=== PATIENT | male | born 1970 | race Caucasian/White ===

== ENCOUNTER 2024-08-09 17:26 | Inpatient (IN) | payer MEDICARE, SELFPAY ==
[2024-08-09] VITALS (17 sets, daily range): BP systolic 101–154; BP diastolic 63–109; PULSE 75–91; RESP 16–114; TEMP 36.6–36.7; O2SAT 91–98
--- NOTE | 2024-08-09 17:32 | CTR_ITS ---
PROCEDURE INFORMATION: Exam: CT Head Without Contrast Exam date and time: 08/09/2024 5:39 PM Age: 54 years old Clinical indication: Stroke-like symptoms; Right upper extremity numbness/paresthesia; Additional info: Symptoms of acute stroke TECHNIQUE: Imaging protocol: Computed tomography of the head without contrast. Radiation optimization: All CT scans at this facility use at least one of these dose optimization techniques: automated exposure control; mA and/or kV adjustment per patient size (includes targeted exams where dose is matched to clinical indication); or iterative reconstruction. Other technique: STROKE PROTOCOL was implemented. COMPARISON: CT angio headneck* [id number] 08/09/2024 5:39 PM RADIATION DOSE METRICS: Total DLP (mGy-cm): 1204.1 FINDINGS: Brain: No intracranial hemorrhage. No evidence of acute territorial infarct or cerebral edema. No mass effect or midline shift. Cerebral ventricles: No hydrocephalus. Paranasal sinuses: Visualized paranasal sinuses are clear. Mastoid air cells: The mastoid air cells are clear. Bones: The calvarium is intact. Soft tissues: Soft tissues are unremarkable as visualized. Soft tissues are unremarkable as visualized. CT/CT head thrombolytic [id number] IMPRESSION: No acute intracranial findings. ASSESSMENT: ASPECTS ([place] Stroke Program Early CT Score) is 10.
--- NOTE | 2024-08-09 17:32 | ECG_ITS ---
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 Measurements Intervals [place] Rate: 85 P: 15 WV: 160 QRS: 2 QRSD: 93 T: 118 QT: 385 QTc: 458 Interpretive Statements SINUS RHYTHM ABNORMAL QRS-T ANGLE [QRS-T AXIS DIFFERENCE > 60] No previous ECG available for comparison Electronically Signed On 08-09-2024 18:50:34 CDT by Keyanna Webb M.D. [email or web address]
[2024-08-09 17:34] LABS: Glucose Point of Care 121 mg/dL (70-110)
--- NOTE | 2024-08-09 17:34 | W.ED.NEUROSD ---
HPI - Neuro Symptoms/Deficit General: Chief Complaint: Neuro Symptoms/Deficit Stated Complaint: Stroke like symptoms Time Seen by Provider: 08/09/24 17:32 History of Present Illness: 54-year-old male presents with numbness down his whole right side. He feels like the right side is a little bit weaker than the left but still has strength. Patient also feels like his speech is a little off. Patient also reports that when he was walking he felt like he was leaning head off to the right. Patient's symptoms started around 4 PM Related Data Allergies Allergy/AdvReac Type Severity Reaction Status Date / Time No Known Allergies Allergy Verified 08/09/24 17:33 Review of Systems Const: Denies: fever(s) or chills Neuro: Reports: numbness in extremities, weakness in extremities and difficulty walking Psych: Denies: anxiety or depression [facility] ED PFSH: Medical History (Updated 08/09/24 @ 19:46 by John Fairbanks MD) Chronic back pain Coronary artery disease Congestive heart failure Hypertension Surgical History (Updated 08/09/24 @ 19:38 by John Fairbanks MD) History of hand surgery Family History (Updated 08/09/24 @ 19:38 by John Fairbanks MD) Father Heart disease Social History (Updated 08/09/24 @ 19:38 by John Fairbanks MD) Smoking and tobacco/nicotine status: never used tobacco/nicotine Alcohol intake: never Substance/Drug Use: never Physical Exam Const: COMMON NORMALS: no acute distress, patient oriented x3 and alert Eye: GENERAL EYE: appearance normal, both eyes and all related structures VISUAL ACUITY: Yes acuity normal Resp: COMMON NORMALS: normal respiratory effort and clear to auscultation bilaterally AUSCULTATION: clear to auscultation bilaterally Cardio: COMMON NORMALS: regular rate and regular rhythm RATE: regular rate RHYTHM: regular rhythm GI: COMMON NORMALS: Soft to palpation and non-tender PALPATION: Yes Soft to palpation Neuro: COMMON NORMALS: patient oriented x3 and moves all extremities SENSORIUM/ORIENTATION: Yes alert SPEECH: abnormal speech Details: slurred (mild ) GAIT: Yes Other gait observations present (mild off balance to right ) SENSORY EXAM: Yes extremities (mild decreased sensation to right ) Psych: COMMON NORMALS: mental status grossly normal, Normal thought process present, cooperative and normal affect THOUGHT PROCESS: Normal thought process present Skin: COMMON NORMALS: no rashes or lesions noted GENERAL SKIN EXAM: no rashes or lesions noted Course Vital Signs: Vital signs: Vital Signs Temperature 97.9 F 08/09/24 17:28 Pulse Rate 88 08/09/24 19:33 Respiratory Rate 21 H 08/09/24 19:33 Blood Pressure 154/92 08/09/24 19:33 Pulse Oximetry 91 08/09/24 19:30 Oxygen Delivery Me thod Room Air 08/09/24 19:30 MDM - Neuro Symptoms/Deficit Medical Decision Making Patient diagnostics are reviewed interpreted by me. Patient's labs showed no significant acute findings. Patient did have symptoms concerning for stroke. Stroke alert was called. Patient had a negative CT head and negative CTA head neck. Patient case was discussed with neurologist Dr. Rose who also evaluated patient via [place] neurostroke. Following evaluation they felt that he would benefit from TNKase. Patient NIH was approximately 4 however due to to the symptoms and presentation he felt he was a good candidate. Patient was provided with TNKase. Patient will be admitted to the ICU unit to Dr. Fairbanks hospitalist for further inpatient evaluation and monitoring. Patient was stable upon admission. Lab Data 08/09/24 17:32 08/09/24 17:[address] 08/09/24 17:32 IMPRESSION: No acute intracranial findings. ASSESSMENT: ASPECTS ([place] Stroke Program Early CT Score) is 10. ADDENDUM: 08/09/24 1813 COMMENT: THIS REPORT CONTAINS FINDINGS THAT MAY BE CRITICAL TO PATIENT CARE. The exam findings were verbally communicated by me to RITO KIM via telephone conference at 6:12 PM CDT on 08/09/2024. The findings were acknowledged and understood. Head/Neck CTA 08/09/24 17:39 IMPRESSION: 1. No large vessel occlusion or severe stenosis. 2. Moderate stenosis of the right vertebral artery. 3. Mild stenosis of bilateral intracranial carotid arteries, [id number]-yhzyewj-yhzv-left. IMPRESSION: 1. No large vessel occlusion or flow-limiting arterial stenosis. 2. Nonspecific bilateral level 2A cervical lymphadenopathy, npokm-ygfdrta-qyzf-left. REFERENCES: NASCET CRITERIA. The degree of stenosis in the cervical segment of the internal carotid artery is based on NASCET criteria. Normal is no stenosis. Mild is less than 50% stenosis. Moderate is 50-69% stenosis. Severe is 70% to 99% stenosis. Total occlusion is no detectable patent lumen. Laboratory Results WBC 13.94 10^3/uL (3.29-11.43) H 08/09/24 17:32 RBC 6.50 10^6/uL (3.85-5.65) H 08/09/24 17:32 Hgb 17.10 g/dL (11.27-16.99) H 08/09/24 17:32 Hct 53.6 % (37-53) H 08/09/24 17:32 MCV 82.5 fl (82-101) 08/09/24 17:32 MCH 26.3 pg (27-33) L 08/09/24 17:32 MCHC 31.9 g/dL (30-55) 08/09/24 17:32 RDW 14.4 % (12.1-15.1) 08/09/24 17:32 Plt Count 311 10^3/cmm (157-399) 08/09/24 17:32 MPV 9.4 fL (7.4-10.4) 08/09/24 17:32 Neut % (Auto) 61.8 % 08/09/24 17:32 Lymph % (Auto) 24.8 % 08/09/24 17:32 Christian % (Auto) 9.5 % 08/09/24 17:32 Eos % (Auto) 1.4 % 08/09/24 17:32 Baso % (Auto) 0.9 % 08/09/24 17:32 Neut # (Auto) 8.62 10^3/uL (1.8-7.7) H 08/09/24 17:32 Lymph # (Auto) 3.5 10^3/uL (0.8-4.8) 08/09/24 17:32 Christian # (Auto) 1.3 10^3/uL (0.2-0.9) H 08/09/24 17:32 Eos # (Auto) 0.2 10^3/uL (0.0-0.8) 08/09/24 17:32 Baso # (Auto) 0.1 10^3/uL (0.0-0.1) 08/09/24 17:32 Nucleated RBC % (auto) 0 % 08/09/24 17:32 Nucleated RBCs # 0.0 /100WBC 08/09/24 17:32 PT 13.10 SECONDS (12.1-14.9) 08/09/24 17:32 INR 0.93 (0.8-1.2) 08/09/24 17:32 APTT 29.9 SECONDS (23.9-36.7) 08/09/24 17:32 Sodium 140 mmol/L (136-145) 08/09/24 17:32 Potassium 4.9 mmol/L (3.5-5.1) 08/09/24 17:32 Chloride 104 mmol/L (98-107) 08/09/24 17:32 Carbon Dioxide 27 mmol/L (22-29) 08/09/24 17:32 Anion Gap 13.9 (5-19) 08/09/24 17:32 BUN 16 mg/dL (6-20) 08/09/24 17:32 Creatinine 0.9 mg/dL (0.7-1.2) 08/09/24 17:32 GFR Calculation 88.6 mL/min (90-130) L 08/09/24 17:32 Glucose 135 mg/dL (65-115) H 08/09/24 17:32 POC Glucose 121 mg/dL (70-110) H 08/09/24 17:31 Calculated Osmolality 293 mOsm/kg (285-295) 08/09/24 17:32 Calcium 9.7 mg/dL (8.5-10.5) 08/09/24 17:32 Total Bilirubin 0.3 mg/dL (0.15-1.2) 08/09/24 17:32 AST 25 U/L (0-40) 08/09/24 17:32 ALT 50 U/L (0-41) H 08/09/24 17:32 Alkaline Phosphatase 127 U/L (40-130) 08/09/24 17:32 Total Protein 7.4 g/dL (6.6-8.7) 08/09/24 17:32 Albumin 3.8 g/dL (3.5-5.2) 08/09/24 17:32 Globulin 3.6 g/dL (1.3-4.6) 08/09/24 17:32 Urine Color Yellow (Yellow) 08/09/24 18:43 Urine Appearance Clear (CLEAR) 08/09/24 18:43 Urine pH 6.0 (5-7) 08/09/24 18:43 Ur Specific [place] 1.082 (1.005-1.030) H 08/09/24 18:43 Urine Protein Negative (Negative) 08/09/24 18:43 Urine Glucose (UA) Negative (Normal) 08/09/24 18:43 Urine Ketones Negative (Negative) 08/09/24 18:43 Urine Blood Negative (Negative) 08/09/24 18:43 Urine Nitrate Negative (Negative) 08/09/24 18:43 Urine Bilirubin Negative (Negative) 08/09/24 18:43 Urine Urobilinogen 0.2 mg/dL (Negative) 08/09/24 18:43 Ur Leukocyte Esterase Negative (Negative) 08/09/24 18:43 Urine RBC 0-2 /hpf (0-2) 08/09/24 18:43 Urine WBC 0-5 /hpf (0-5) 08/09/24 18:43 Ur Squamous Epith Cells 0-5 /hpf (0-5) 08/09/24 18:43 Amorphous Sediment Not Reportable 08/09/24 18:43 Urine Bacteria None seen /hpf (NONE) 08/09/24 18:43 Hyaline Casts 0-4 /lpf H 08/09/24 18:43 Urine Opiates Screen Negative ng/mL (Negative) 08/09/24 18:43 Ur Barbiturates Screen Negative ng/mL (Negative) 08/09/24 18:43 Ur Phencyclidine Scrn Negative ng/mL (Negative) 08/09/24 18:43 Ur Amphetamines Screen Negative ng/mL (Negative) 08/09/24 18:43 U Benzodiazepines Scrn Negative ng/mL (Negative) 08/09/24 18:43 Urine Cocaine Screen Negative ng/mL (Negative) 08/09/24 18:43 U Marijuana (THC) Screen Negative ng/mL (Negative) 08/09/24 18:43 All radiology interpretation(s) finalized by discharge Discharge Plan Discharge Patient Disposition: Admitted As Inpatient Clinical Impression: Cerebrovascular accident Condition: Stable Discharge Diet: Usual diet Discharge Activity: Bedrest Coding Level of Care Code ED Ship Scraper for Samantha Grimaldo
--- NOTE | 2024-08-09 17:39 | CTR_ITS ---
PROCEDURE INFORMATION: Exam: CTA Head With Contrast, Arteriography Exam date and time: 08/09/2024 5:39 PM Age: 54 years old Clinical indication: Numbness; Additional info: RT sided tingling TECHNIQUE: Imaging protocol: Computed tomographic angiography of the head with contrast. Exam focused on the arteries. 3D rendering (Not supervised by radiologist): MIP and/or 3D reconstructed images were created by the technologist. Radiation optimization: All CT scans at this facility use at least one of these dose optimization techniques: automated exposure control; mA and/or kV adjustment per patient size (includes targeted exams where dose is matched to clinical indication); or iterative reconstruction. Contrast material: OMNIPAQUE 350; Contrast volume: 100 ml; Contrast route: INTRAVENOUS (IV); COMPARISON: CT head thrombolytic [id number] 08/09/2024 5:39 PM RADIATION DOSE METRICS: Total DLP (mGy-cm): 559.5 FINDINGS: ANTERIOR CIRCULATION: Right internal carotid artery: The intracranial right internal carotid artery demonstrates mild atherosclerotic calcification of the carotid siphon without significant stenosis. No aneurysm. Right middle cerebral artery: Right middle cerebral artery is patent. No significant stenosis. No aneurysm. Right anterior cerebral artery: Right anterior cerebral artery is patent. No significant stenosis. No aneurysm. The right anterior cerebral artery arises from the left via the anterior communicating artery. Left internal carotid artery: The intracranial left internal carotid artery demonstrates mild atherosclerotic calcification of the carotid siphon without significant stenosis. No aneurysm. Left middle cerebral artery: Left middle cerebral artery is patent. No significant stenosis. No aneurysm. Left anterior cerebral artery: Left anterior cerebral artery is patent. No significant stenosis. No aneurysm. POSTERIOR CIRCULATION: Right vertebral artery: There is moderate stenosis of the right vertebral artery. No aneurysm. Left vertebral artery: There is mild irregular atherosclerotic narrowing of the left vertebral artery, without significant stenosis. No aneurysm. The left vertebral artery is small in caliber after the takeoff of the PICA. Basilar artery: The basilar artery is patent. No significant stenosis. No aneurysm. Right posterior cerebral artery: Right posterior cerebral artery is patent. No significant stenosis. No aneurysm. Left posterior cerebral artery: Left posterior cerebral artery is patent. No significant stenosis. No aneurysm. Veins: The visualized dural venous sinuses are patent. Brain: Please see seperately ordered CT of the head for full report. Cerebral ventricles: Please see seperately ordered CT of the head for full report. Bones/joints: Unremarkable. Soft tissues: Soft tissues are unremarkable as visualized. PROCEDURE INFORMATION: Exam: CTA Neck With Contrast Exam date and time: 08/09/2024 5:39 PM Age: 54 years old Clinical indication: Numbness; Additional info: RT sided tingling TECHNIQUE: Imaging protocol: Computed tomographic angiography of the neck with contrast. Exam focused on the cervical segments of the vasculature. 3D rendering (Not supervised by radiologist): MIP and/or 3D reconstructed images were created by the technologist. Radiation optimization: All CT scans at this facility use at least one of these dose optimization techniques: automated exposure control; mA and/or kV adjustment per patient size (includes targeted exams where dose is matched to clinical indication); or iterative reconstruction. Contrast material: OMNIPAQUE 350; Contrast volume: 100 ml; Contrast route: INTRAVENOUS (IV); COMPARISON: CT head thrombolytic [id number] 08/09/2024 5:39 PM RADIATION DOSE METRICS: Total DLP (mGy-cm): 559.5 FINDINGS: Right common carotid artery: The right common carotid artery shows no evidence of significant stenosis. Right internal carotid artery: The right internal carotid artery shows no evidence of significant stenosis. Right external carotid artery: The right external carotid artery shows no evidence of significant stenosis. Left common carotid artery: The left common carotid artery is patent. No significant stenosis. Left internal carotid artery: The left internal carotid artery shows no evidence of significant stenosis. Left external carotid artery: The left external carotid artery shows no evidence of significant stenosis. Right vertebral artery: Right vertebral artery is patent. No significant stenosis. No evidence of dissection. Left vertebral artery: Left vertebral artery is patent. No significant stenosis. No evidence of dissection. Thyroid: The visualized thyroid gland is unremarkable. Lymph nodes: Bilateral level 2A cervical lymphadenopathy, vqhsi-elyatzm-tbfa-left. Soft tissues: Soft tissues are unremarkable as visualized. Bones/joints: The spine demonstrates mild degenerative changes at multiple levels. Lungs: The visualized portions of the lungs are unremarkable. CT/CT angio headneck* [id number] IMPRESSION: 1. No large vessel occlusion or severe stenosis. 2. Moderate stenosis of the right vertebral artery. 3. Mild stenosis of bilateral intracranial carotid arteries, pxwmt-pljptqn-ioyk-left. IMPRESSION: 1. No large vessel occlusion or flow-limiting arterial stenosis. 2. Nonspecific bilateral level 2A cervical lymphadenopathy, oilvn-vdlfsrf-lbca-left. REFERENCES: NASCET CRITERIA. The degree of stenosis in the cervical segment of the internal carotid artery is based on NASCET criteria. Normal is no stenosis. Mild is less than 50% stenosis. Moderate is 50-69% stenosis. Severe is 70% to 99% stenosis. Total occlusion is no detectable patent lumen.
[2024-08-09 17:40] LABS: Basophils # 0.1 10^3/uL (0.0-0.1); Basophils % 0.9 %; Eosinophils # 0.2 10^3/uL (0.0-0.8); Eosinophils % 1.4 %; Hematocrit 53.6 % (37-53); Lymphocytes # 3.5 10^3/uL (0.8-4.8); Lymphocytes % 24.8 %; Mean Corpuscular HGB Conc 31.9 g/dL (30-55); Mean Corpuscular Hemoglobin 26.3 pg (27-33); Mean Corpuscular Volume 82.5 fl (82-101); Mean Platelet Volume 9.4 fL (7.4-10.4); Monocytes # 1.3 10^3/uL (0.2-0.9); Monocytes % 9.5 %; Neutrophils # 8.62 10^3/uL (1.8-7.7); Neutrophils % 61.8 %; Nucleated Red Blood Cells % 0 %; Platelet Count 311 10^3/cmm (157-399); Red Cell Distribution Width 14.4 % (12.1-15.1); White Blood Count 13.94 10^3/uL (3.29-11.43)
[2024-08-09] MEDS: iohexol 350 mg/mL 500 mL Btl (per mL) IV (17:50)
[2024-08-09 17:57] LABS: INR 0.93 (0.8-1.2)
[2024-08-09 17:58] LABS: Partial Thromboplastin Time 29.9 SECONDS (23.9-36.7)
[2024-08-09 18:02] LABS: Alanine Aminotransferase 50 U/L (0-41); Albumin Level 3.8 g/dL (3.5-5.2); Alkaline Phosphatase 127 U/L (40-130); Anion Gap 13.9 (5-19); Aspartate Amino Transferase 25 U/L (0-40); Blood Urea Nitrogen 16 mg/dL (6-20); Calcium 9.7 mg/dL (8.5-10.5); Carbon Dioxide 27 mmol/L (22-29); Chloride 104 mmol/L (98-107); Globulin 3.6 g/dL (1.3-4.6); Glomerular Filtration Rate 88.6 mL/min (90-130); Glucose 135 mg/dL (65-115); Osmolality Calculated 293 mOsm/kg (285-295); Potassium 4.9 mmol/L (3.5-5.1); Sodium 140 mmol/L (136-145); Total Bilirubin 0.3 mg/dL (0.15-1.2); Total Protein 7.4 g/dL (6.6-8.7)
[2024-08-09] MEDS: tenecteplase 50mg Kit (STROKE) 25 MG IVP (19:00)
--- NOTE | 2024-08-09 19:02 | PC.NURSE ---
25MG TNKASE ADMINSTERED TO PT WITH ARIEL JACOBS AND DR. KIM AT BEDSIDE. TNKASE DOSE VERIFIED WITH ARIEL JACOBS.
[2024-08-09 19:14] LABS: Bilirubin Urine Negative (Negative); Blood Urine Negative (Negative); Glucose Urine UA Negative (Normal); Ketones Urine Negative (Negative); Leukocyte Esterase Urine Negative (Negative); Nitrate Urine Negative (Negative); Protein Urine Negative (Negative); Urine Appearance Clear (CLEAR); Urine Color Yellow (Yellow); Urobilinogen Urine 0.2 mg/dL (Negative)
[2024-08-09 19:16] LABS: Add Urine Microscopic? YES; Bacteria Urine None Seen /hpf; Hyaline Casts Urine 0-4 /lpf; RBC Urine 0-2 /hpf (0-2); Squamous Epithelial Cell Urine 0-5 /hpf (0-5); WBC Urine 0-5 /hpf (0-5)
[2024-08-09 19:21] LABS: Amphetamines Screen Urine Negative (Negative); Barbiturates Screen Urine Negative (Negative); Benzodiazepines Screen Urine Negative (Negative); Cocaine Screen Urine Negative (Negative); Opiate Screen Urine Negative (Negative); PCP Screen Urine Negative (Negative); THC Screen Urine Negative (Negative)
--- NOTE | 2024-08-09 19:22 | P.HP_ITS ---
Providers/Chief Complaint 2 Chief Complaint: Stroke like symptoms History of Present Illness Maico Osorio is a 54 year old male with a past medical history significant for hypertension, congestive heart failure, coronary artery disease, and chronic back pain who presents emergency department with strokelike symptoms with onset at 4 PM today. Patient describes the onset of right sided numbness and tingling associated with slight weakness across the right side of his body. Endorses associated slightly slurred speech. Denies alleviating or aggravating factors. Denies prior history of stroke. In the emergency department, CT head was negative for acute findings. There was no large vessel occlusion or severe stenosis on head and neck CTA. There was moderate stenosis of the right vertebral artery as well as mild stenosis of the bilateral intracranial carotid arteries. [facility] neurology evaluated the patient recommending TNKase which was administered. Review of Systems 2 Narrative: Patient reports 2 days ago he had a fever and stomach pain, otherwise a complete review of systems was obtained and is negative except as stated in HPI. Medications/Allergies Allergies Allergy/AdvReac Type Severity Reaction Status Date / Time No Known Allergies Allergy Verified 08/09/24 17:33 PFSH Acute 2 PFSH: Medical History (Updated 08/09/24 @ 19:46 by John Fairbanks MD) Chronic back pain Coronary artery disease Congestive heart failure Hypertension Surgical History (Updated 08/09/24 @ 19:38 by John Fairbanks MD) History of hand surgery Family History (Updated 08/09/24 @ 19:38 by John Fairbanks MD) Father Heart disease Social History (Updated 08/09/24 @ 19:38 by John Fairbanks MD) Smoking and tobacco/nicotine status: never used tobacco/nicotine Alcohol intake: never Substance/Drug Use: never Vitals/I&O/Wt Last Vital Signs Temp 97.9 F 08/09/24 17:28 Pulse 87 08/09/24 19:15 Resp 19 H 08/09/24 19:15 BP 124/80 08/09/24 19:15 Pulse Ox 94 08/09/24 19:15 O2 Del Method Room Air 08/09/24 19:15 Weight last 48 hrs Weight 127.913 kg Physical Exam 2 Narrative: General: Patient is awake and alert. Head: Normocephalic. Atraumatic. EOM intact. Neck: No JVD. Cardiovascular: RRR. No gallops. No murmurs. Trace pedal edema. Lungs: Clear to auscultation, no use of accessory muscles, no crackles or wheezes. Skin: No jaundice. No rashes. Abdomen: Normal bowel sounds, abdomen soft and nontender. Extremities: No cyanosis or clubbing. Musculoskeletal: No swollen or erythematous joints. Neurological: Moves all 4 extremities. No myoclonus. Cranial nerves II through XII grossly intact. Sensation slightly decreased in right upper and lower extremities. Data 08/09/24 17:32 08/09/24 17:32 A&P Assessment and plan (1) Cerebrovascular accident: Patient presents with lateralizing neurological systems concerning for stroke [facility] neurology consulted in ED Patient treated with TNKase Admit ICU for post TNKase protocol Telemetry monitoring Echocardiogram Will need repeat head CT and antiplatelet agent started when clinically appropriate Start statin A1c and lipids in a.m. PT/ST/OT (2) Leukocytosis: Leukocytosis to 13.94 Patient reports recent fever couple days ago Urinalysis pending Backorder procalcitonin and CRP (3) Transaminitis: Mild transaminitis with ALT 50 Repeat CMP in a.m. (4) Hyperglycemia: Hyperglycemia to 135 Mg per DL A1c in a.m. (5) Congestive heart failure: Patient reports recent diagnosis of congestive heart failure He does not know the type Obtaining echo as above Patient reports on water pills, home med list is pending (6) Chronic back pain: Plan to continue home meds once list is updated (7) Hypertension: Will allow permissive hypertension Monitor hemodynamics closely in ICU (8) Coronary artery disease: Continue home meds Plan DVT prophylaxis: SCD CODE STATUS: Full code PDMP PDMP Reviewed: Not Reviewed Attestations 2 Medical Necessity Statement*: Patient presents with strokelike symptoms requiring TNKase with expected hospitalization to cross 2 midnights for further stroke workup and care. Coding Level of Care Code Acute Code for [facility] Fwd Diagnoses Cerebrovascular accident I63.9 Leukocytosis D72.829 Transaminitis R74.01 Hyperglycemia R73.9 Congestive heart failure I50.9 Chronic back pain M54.9; G89.29 Hypertension I10 Coronary artery disease I25.10
[2024-08-09 19:35] LABS: Add Urine Culture? No; Specific Gravity, Urine 1.082 (1.005-1.030)
[2024-08-09 20:12] LABS: C Reactive Protein 41.5 mg/L (0.0-4.9)
[2024-08-09 20:19] LABS: Procalcitonin 0.14 ng/mL (0-0.5)
[2024-08-09] MEDS: acetaminophen 325 mg Tablet 650 MG PO (20:20)
--- NOTE | 2024-08-09 20:24 | PC.NURSE ---
PT DID HAVE DRINK OF WATER TO TAKE TYLENOL TAB, PT TOLERATED WELL. HOB IS ELEVATED
--- NOTE | 2024-08-09 21:38 | USCV_ITS ---
Devon Maico Age: 54 Gender: M : 1970 Exam Date: 08/09/2024 22:34 Ordering Phys: John Fairbanks MD Technologist: MAYCO Exam Location: [facility] [place] Indication: CVA, right hemiparesis and slurred speech, history of HTN, CHF, CAD BP: 154 / 92 HR: 86 Rhythm: Sinus Technical Quality: Adequate with OPTISON MEASUREMENTS (Male / Female) Normal Values 2D ECHO LV Diastolic Diameter PLAX 3.9 cm 4.2 - 5.9 / 3.9 - 5.3 cm IVS Diastolic Thickness 2.0 cm 0.6 - 1.0 / 0.6 - 0.9 cm LVPW Diastolic Thickness 1.7 cm 0.6 - 1.0 / 0.6 - 0.9 cm LVOT Diameter 2.0 cm LV Ejection Fraction MOD 4C 62.5 % LV Ejection Fraction MOD 2C 50.8 % LV Ejection Fraction 2C AL 50.1 % LA Diameter 5.4 cm LA Sys Volume AL 147.6 cm cubed LA Sys Volume Index AL 57.8 cm cubed/m squared Aorta at Sinotubular Diameter 3.2 cm IVC Diameter 1.5 cm M-MODE LA Ao Ratio MM 1.6 AV Cusp Separation MM 2.2 cm DOPPLER AV Peak Velocity 111.0 cm/s LVOT Peak Velocity 82.0 cm/s AV Area Cont Eq vti 2.2 cm squared AV Area Cont Eq pk 2.4 cm squared MV Peak Velocity 109.0 cm/s MV Area PHT 6.1 cm squared Mitral E to A Ratio 2.1 TR Peak Velocity 233.0 cm/s TR Peak Gradient 21.7 mmHg TV Peak E Velocity 40.0 cm/s PV Peak Velocity 62.0 cm/s FINDINGS Left Ventricle Normal LV size with slightly diminished ejection fraction of 51%. Mild diffuse hypokinesia of the left ventricle.Grade III/IV diastolic dysfunction (restrictive filling pattern), severely elevated filling pressures. Mild to moderate concentric left ventricular hypertrophy. The echo contrast study was of suboptimal quality Right Ventricle Possibly of normal size with a slightly diminished ejection fraction Right Atrium Possibly of normal size. Left Atrium Moderately increased left atrial size. Mitral Valve Thickened mitral valve. Aortic Valve No gross abnormalities noted Tricuspid Valve Trace tricuspid valve regurgitation. Estimated pulmonary artery peak systolic pressure possibly within normal limits Pulmonic Valve Trace pulmonary valve regurgitation. Pericardium No pleural effusion. Aorta Normal aortic annulus size. IVC Normal inferior vena cava. CONCLUSIONS Normal LV size with slightly diminished ejection fraction of 51%. Mild diffuse hypokinesia of the left ventricle.Grade III/IV diastolic dysfunction (restrictive filling pattern), severely elevated filling pressures. Mild to moderate concentric left ventricular hypertrophy. Moderately increased left atrial size. Thickened mitral valve. Trace tricuspid valve regurgitation. Trace pulmonary valve regurgitation. Estimated pulmonary artery peak systolic pressure possibly within normal limits. Technically difficult study because of the poor ultrasonic window. (Echo contrast - Optison was used to delineate the endocardium and to estimate the LV ejection fraction-even the echo contrast was of suboptimal quality) Dr Keyanna Webb MD FACC (Electronically Signed) Final Date: 10 August 2024 08:32 S
[2024-08-09] MEDS: HYDROcodone-acetaminophen 5-325 mg Tablet 1 TAB PO (22:20)
[2024-08-09] MEDS: atorvastatin 40 mg Tablet PO (22:20)
[2024-08-10] VITALS (29 sets, daily range): BP systolic 102–154; BP diastolic 65–114; PULSE 68–87; RESP 16–30; TEMP 36.6–37.2; O2SAT 88–96
[2024-08-10] MEDS: HYDROcodone-acetaminophen 5-325 mg Tablet 1 TAB PO ×2 (05:05→19:14)
[2024-08-10] MEDS: ondansetron 2 mg/ML SDV 2 mL 4 MG IVP (05:06)
[2024-08-10] MEDS: perflutren protein-a microsphr 0.22 mg/mL SDV 3 mL IV (05:46)
[2024-08-10 05:57] LABS: Basophils # 0.2 10^3/uL (0.0-0.1); Eosinophils # 0.2 10^3/uL (0.0-0.8); Eosinophils % 1.6 %; Lymphocytes # 2.9 10^3/uL (0.8-4.8); Lymphocytes % 20.2 %; Mean Corpuscular HGB Conc 31.7 g/dL (30-55); Mean Corpuscular Hemoglobin 26.4 pg (27-33); Mean Corpuscular Volume 83.3 fl (82-101); Mean Platelet Volume 10.1 fL (7.4-10.4); Monocytes # 1.4 10^3/uL (0.2-0.9); Monocytes % 9.8 %; Neutrophils # 9.41 10^3/uL (1.8-7.7); Neutrophils % 65.7 %; Nucleated Red Blood Cells % 0 %; Platelet Count 275 10^3/cmm (157-399); Red Blood Count 6.36 10^6/uL (3.85-5.65); Red Cell Distribution Width 14.6 % (12.1-15.1); White Blood Count 14.34 10^3/uL (3.29-11.43)
[2024-08-10 06:16] LABS: Estmated Average Glucose 146; Hemoglobin A1C 6.7 % (4.0-6.0)
[2024-08-10 06:23] LABS: Glucose Point of Care 119 mg/dL (70-110)
[2024-08-10 06:30] LABS: Chol HDL Ratio 5.15 mg/dL (1.0-5.00); Cholesterol 237 mg/dL (0-200); HDL Cholesterol 46 mg/dL (60-100); LDL Cholesterol Calculated 165 mg/dL (50-129); LDL HDL Ratio 3.59 RATIO (0.00-3.22); Triglycerides 129 mg/dL (0-150)
[2024-08-10] MEDS: prochlorperazine 10 mg/2 mL Inj IVP (06:33)
[2024-08-10 06:36] LABS: Alanine Aminotransferase 46 U/L (0-41); Albumin Level 3.8 g/dL (3.5-5.2); Alkaline Phosphatase 128 U/L (40-130); Anion Gap 16.8 (5-19); Aspartate Amino Transferase 29 U/L (0-40); Blood Urea Nitrogen 13 mg/dL (6-20); Calcium 9.4 mg/dL (8.5-10.5); Carbon Dioxide 24 mmol/L (22-29); Chloride 106 mmol/L (98-107); Globulin 3.4 g/dL (1.3-4.6); Glomerular Filtration Rate 118.4 mL/min (90-130); Glucose 106 mg/dL (65-115); Magnesium 2.3 mg/dL (1.7-2.3); Osmolality Calculated 295 mOsm/kg (285-295); Potassium 4.8 mmol/L (3.5-5.1); Sodium 142 mmol/L (136-145); Total Bilirubin 0.4 mg/dL (0.15-1.2); Total Protein 7.2 g/dL (6.6-8.7)
--- NOTE | 2024-08-10 13:30 | P.PN_ITS ---
Subjective 2 Subjective: Seen him at bedside this morning. Denies any new complaints. Reports having right lower extremity numbness since admission. Has been able to tolerate liquids. Medications: Reviewed: Yes Vitals/I&O/Wt Last Vital Signs Temp 98.9 F 08/10/24 08:00 Pulse 86 08/10/24 11:00 Resp 16 08/10/24 10:00 BP 139/102 08/10/24 12:00 Pulse Ox 94 08/10/24 12:00 O2 Del Method Room Air 08/10/24 08:00 08/09/24 08/10/24 08/10/24 22:59 06:59 14:59 Intake Total 480 / 480 60 / 540 Output Total 500 / 500 Balance -20 / -20 60 / 40 Weight last 48 hrs Weight 127 kg Weight 127 kg Weight 127.913 kg Physical Exam 2 Narrative: General: Patient is awake and alert. Head: Normocephalic. Atraumatic. EOM intact. Neck: No JVD. Cardiovascular: RRR. No gallops. No murmurs. Trace pedal edema. Lungs: Clear to auscultation, no use of accessory muscles, no crackles or wheezes. Skin: No jaundice. No rashes. Abdomen: Normal bowel sounds, abdomen soft and nontender. Extremities: No cyanosis or clubbing. Musculoskeletal: No swollen or erythematous joints. Neurological: Moves all 4 extremities. No myoclonus. Cranial nerves II through XII grossly intact. Sensation slightly decreased in right upper and lower extremities. Power 5/5 Data 08/10/24 04:12 08/10/24 04:12 A&P Assessment and plan (1) Cerebrovascular accident: Patient presents with lateralizing neurological systems concerning for stroke [facility] neurology consulted in ED Patient treated with TNKase Admit ICU for post TNKase protocol Telemetry monitoring Echocardiogram Will need repeat head CT and antiplatelet agent started when clinically appropriate Start statin A1c and lipids in a.m. PT/ST/OT (2) Leukocytosis: Leukocytosis 13.94 Patient reports recent fever couple days ago Urinalysis pending Backorder procalcitonin and CRP (3) Transaminitis: Mild transaminitis with ALT 50 Repeat CMP in a.m. (4) Hyperglycemia: Hyperglycemia to 135 Mg per DL A1c in a.m. (5) Congestive heart failure: Patient reports recent diagnosis of congestive heart failure He does not know the type Obtaining echo as above Patient reports on water pills, home med list is pending (6) Chronic back pain: Plan to continue home meds once list is updated (7) Hypertension: Will allow permissive hypertension Monitor hemodynamics closely in ICU (8) Coronary artery disease: Continue home meds Plan DVT prophylaxis: SCD CODE STATUS: Full code 08/10/24 He is doing well this morning. Denies any new complaints. Still has complaint of right lower extremity and upper extremity numbness. Neurological exam unchanged. WBC count trending up to 14.3, likely reactive. Hemoglobin 16.8. LDL 165 and HbA1c 6.7. Neurology follow-up requested. Will follow-up for further recommendations Speech and swallow eval recommended regular diet. Will continue to monitor in ICU. Anticipating discharge in a.m. PDMP PDMP Reviewed: Not Reviewed Attestations 2 Medical Necessity Statement*: Patient presents with strokelike symptoms requiring TNKase with expected hospitalization to cross 2 midnights for further stroke workup, monitoring post TNKase and care. Time Spent in Patient Care: 20minutes Coding Level of Care Code Acute Code for Chg Fwd Diagnoses Cerebrovascular accident I63.9 Leukocytosis D72.829 Transaminitis R74.01 Hyperglycemia R73.9 Congestive heart failure I50.9 Chronic back pain M54.9; G89.29 Hypertension I10 Coronary artery disease I25.10 Time Spent (min) 20
--- NOTE | 2024-08-10 14:56 | CTR_ITS ---
PROCEDURE INFORMATION: Exam: CT Head Without Contrast Exam date and time: 08/10/2024 3:24 PM Age: 54 years old Clinical indication: Stroke-like symptoms; Right upper extremity numbness/paresthesia; Additional info: S/P stroke TECHNIQUE: Imaging protocol: Computed tomography of the head without contrast. Radiation optimization: All CT scans at this facility use at least one of these dose optimization techniques: automated exposure control; mA and/or kV adjustment per patient size (includes targeted exams where dose is matched to clinical indication); or iterative reconstruction. Other technique: STROKE PROTOCOL was implemented. COMPARISON: CT angio headneck* [id number] 08/09/2024 5:39 PM RADIATION DOSE METRICS: Total DLP (mGy-cm): 1357.97 FINDINGS: Brain: No intracranial hemorrhage. No evidence of acute territorial infarct or cerebral edema. No mass effect or midline shift. Cerebral ventricles: No hydrocephalus. Paranasal sinuses: Visualized paranasal sinuses are clear. Mastoid air cells: The mastoid air cells are clear. Bones: The calvarium is intact. Soft tissues: Soft tissues are unremarkable as visualized. CT/CT head wo con* [id number] IMPRESSION: No acute intracranial findings. ASSESSMENT: ASPECTS ([place] Stroke Program Early CT Score) is 10.
--- NOTE | 2024-08-10 19:43 | PM.CONSULT ---
Providers/Reason For Consult Consulting Physician/Specialty*: Darshana Mooney MD Reason for Consult*: Follow-up of stroke Attending Physician: Darshana Villa MD History of Present Illness History of Present Illness Maico Osorio is a 54 year old man who presented to the emergency department here complaining of unilateral numbness and weakness with last known normal at 3 PM. After that he noticed that he was leaning to the right when walking and he felt numb on the right. He was seen by Dr. Rose for telestroke. He had mild dysarthria, mild lid lag on the right and no drift. He indicated that sensation was reduced throughout the right side. CT of the head and CT angiogram were unremarkable. His blood pressure was slightly elevated at 143/109. He received TNK and the order was given at [address] [facility]. Documentation of thrombolytic was at 1900 by Cyndi James. There was a second note that documented 25 mg of TNK recorded at 1902. He remembers that he walked into the grocery store at about 3:00 in the afternoon and he was feeling okay until he got inside and started to feel funny. It was hard to define what was wrong but by the time he got into the line and started trying to check out he discovered that he could not put the money back in his wallet and he could not hold onto his change with the right hand. He walked out of the store and walked into 2 cars trying to get back to his truck. He kept veering to the right. He drove the truck home, and was able to operate the accelerator with his right foot. He climbed out of the truck and walked into the house, sat down at the table and ate a sandwich. He told his that he was feeling funny and he wanted to go lay down. They lay down for a short nap and when he got up he said he wanted to go to the hospital. She called [facility] and said she was bringing him for unilateral numbness. He arrived here at 1728, probably 2 hours from onset of symptoms. He received TNK at 1902, 124 minutes after arrival. The patient is aware that his blood pressure has been out of control for some time. He recently was discovered to be in congestive heart failure by his primary care provider and they started him on Lasix. 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 Currently he is still very clumsy on the right side. His speech is dysarthric. He is weaker in the right arm than the right leg but he cannot fully bear weight in the right leg. He is prepared to go to rehab. Echocardiogram 08/09/2024 Normal LV size with slightly diminished ejection fraction of 51%. Mild diffuse hypokinesia of the left ventricle.Grade III/IV diastolic dysfunction (restrictive filling pattern), severely elevated filling pressures. Mild to moderate concentric left ventricular hypertrophy. Moderately increased left atrial size. Thickened mitral valve. Trace tricuspid valve regurgitation. Trace pulmonary valve regurgitation. Estimated pulmonary artery peak systolic pressure possibly within normal limits. Technically difficult study because of the poor ultrasonic window. (Echo contrast - Optison was used to delineate the endocardium and to estimate the LV ejection fraction-even the echo contrast was of suboptimal quality) Dr Keyanna Webb MD [facility] (Electronically Signed) Final Date: 10 August 2024 EKG and telemetry have been showing sinus rhythm. Hemoglobin A1c 6.7 with an average estimated glucose of 146. The patient has poorly controlled hypertension and moderate morbid obesity. His is aware that he has sleep apnea and he has been resistant to having it diagnosed because he saw his mother's CPAP. He has mildly elevated liver enzymes suggesting possible fatty infiltration. Review of Systems Narrative: He complained of some abdominal symptoms to Dr. Fairbanks. He has otherwise been well. He suffers from hypertension and is on several drugs for hypertension. He has chronic back pain and is on disability. He has a feeling of exhaustion. Medications/Allergies Home Medications ?Medication ?Instructions ?Recorded ?Confirmed ?Last Taken ?Type amoxicillin 875 mg-potassium 1 tab PO Q12H 08/10/24 08/10/24 Unknown History clavulanate 125 mg tablet furosemide 20 mg tablet 20 mg PO DAILY 08/10/24 08/10/24 Unknown History lisinopril 10 mg tablet 10 mg PO DAILY 08/10/24 08/10/24 Unknown History ondansetron 8 mg disintegrating 8 mg PO PRN PRN Nausea 08/10/24 08/10/24 Unknown History tablet potassium chloride 10 mEq 10 meq PO DAILY 08/10/24 08/10/24 Unknown History tablet,extended release Allergies Allergy/AdvReac Type Severity Reaction Status Date / Time No Known Allergies Allergy Verified 08/09/24 17:33 Current Medications Generic Name Dose Route Start Last Admin Trade Name Freq PRN Reason Stop Dose Admin Hydrocodone Bitart/Acetaminophen 1 tab 08/09/24 22:07 08/10/24 19:14 Hydrocodone-Acetaminophen 5-325 Mg Tablet PO 1 tab Q4H PRN Administration MODERATE PAIN Atorvastatin Calcium 40 mg 08/09/24 21:38 08/09/24 22:20 Atorvastatin 40 Mg Tablet PO 40 mg BEDTIME TUCKER Administration Ondansetron HCl 4 mg 08/10/24 04:33 08/10/24 05:06 Ondansetron 2 Mg/Ml Sdv 2 Ml IVP 4 mg Q6H PRN Administration NAUSEA AND VOMITING PFSH Acute PFSH: Medical History (Updated 08/10/24 @ 19:48 by Samantha Herman MD) Chronic back pain Coronary artery disease Congestive heart failure Hypertension Surgical History (Updated 08/09/24 @ 19:38 by John Fairbanks MD) History of hand surgery Family History (Updated 08/09/24 @ 19:38 by John Fairbanks MD) Father Heart disease Social History (Updated 08/09/24 @ 19:38 by John Fairbanks MD) Smoking and tobacco/nicotine status: never used tobacco/nicotine Alcohol intake: never Substance/Drug Use: never Vitals/I&O/Wt Last Vital Signs Temp 97.9 F 08/10/24 19:00 Pulse 81 08/10/24 19:00 Resp 18 08/10/24 18:51 BP 141/97 08/10/24 19:00 Pulse Ox 95 08/10/24 19:00 O2 Del Method Room Air 08/10/24 19:00 08/10/24 08/10/24 08/10/24 06:59 14:59 22:59 Intake Total 60 / 540 120 / 120 Output Total 500 / 500 Balance 60 / 40 -380 / -380 Weight last 48 hrs Weight 279 lb 15.793 oz Weight 279 lb 15.793 oz Weight 282 lb Physical Exam Narrative: GENERAL: 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 CRANIAL NERVES: Visual acuity was intact to reading small print. Visual mitchell were full to confrontation, direct and consensual. Extraocular movements were full without nystagmus. Both slow pursuit and saccadic eye movements were normal. PERRLA. Flattening of the right nasolabial fold during emotive speech but grimace was symmetric. Facial sensation was intact in all three distributions of the fifth cranial nerve bilaterally to pin. Hearing was intact to soft spoken voice. Tongue and palate were midline at rest and with protrusion of the tongue and elevation of the palate. Shoulders were symmetric at rest and with shoulder shrug. 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 Decreased toe tapping on the right. He was able to stand and bear weight on the right leg briefly. SENSATION: No asymmetry to pin or touch. COORDINATION: ataxia on the right proportional to weakness. DEEP TENDON REFLEXES: Brisk throughout. GAIT: The patient was able to walk 10 feet down the florian, make a normal turn and return to the exam room without event. Able to walk on tiptoes and heels. HEENT: Normocephalic without dysmorphic features. Conjunctivae were not injected and sclerae were nonicteric. NECK: Carotid upstroke was strong bilaterally without bruits. He has a short thick neck. CHEST: Clear to auscultation. CARDIOVASCULAR: The heart sounds were normal without murmur or gallop. Regular rate and rhythm. EXTREMITIES: Central pattern of obesity. Data 08/10/24 04:12 08/10/24 04:12 CT Head: My impression: CT head was normal 08/09/2024 and again this morning. CT angiogram shows no intracranial or extracranial stenosis. A&P Assessment and plan (1) Lacunar stroke, acute: Probable lacunar stroke secondary to poorly controlled hypertension, although strong possibly for atrial fibrillation exists because of the patient's untreated obstructive sleep apnea and recent cardiac problems. Risk factors for stroke were discussed in detail and patient was recommended to pay closer attention to his blood sugar as his hemoglobin A1c is elevated. It would be appropriate for him to be started on Mounjaro for control of his blood sugar, improved sleep apnea risk. Increased physical activity recommended starting with rehab. Physical therapy came to see him several times a day but he was sleeping. I will be glad to see him in follow-up in my office when he finishes rehab. He would like to be referred locally to an lathe operator contact lens for follow-up. I want to see him in my office within a few weeks of discharge from rehab. He needs a 30-day osteopathic physician to be set up at the time that he leaves here. I went over all of his studies with him in detail. He needs a sleep study and that will need to be attended to when I see him in clinic unless you set it up prior to discharge Atorvastatin 40 mg daily. Cardiology consult for 30-day monitor and evaluation of his cardiac function. Plavix 75 mg daily for 3 weeks. Aspirin 81 mg daily ongoing. I recorded all of this in his stroke book along with my office phone number. PDMP PDMP Reviewed: Not Reviewed Consult Attestations Medical Necessity Statement: Acute stroke Time Spent in Patient Care: Greater than 35 minutes Coding Level of Care Code 93590 Diagnoses Lacunar stroke, acute I63.81
--- NOTE | 2024-08-10 20:50 | PC.NURSE ---
Neurology Dr. Herman at bedside; right sided weakness discussed. Stroke education provided by Dr. Herman. Verbal order received for 75 mg plavix daily starting tonight. Education reinforced; all questions answered.
[2024-08-10] MEDS: clopidogrel 75 mg Tablet PO (21:05)
[2024-08-10] MEDS: atorvastatin 40 mg Tablet PO (21:05)
[2024-08-11] VITALS (10 sets, daily range): BP systolic 109–166; BP diastolic 62–107; PULSE 69–89; RESP 18; TEMP 36.5; O2SAT 92–98
[2024-08-11 05:06] LABS: Basophils # 0.1 10^3/uL (0.0-0.1); Basophils % 1.1 %; Eosinophils # 0.4 10^3/uL (0.0-0.8); Hematocrit 52.1 % (37-53); Lymphocytes # 3.1 10^3/uL (0.8-4.8); Lymphocytes % 25.8 %; Mean Corpuscular HGB Conc 31.5 g/dL (30-55); Mean Corpuscular Hemoglobin 26.3 pg (27-33); Mean Corpuscular Volume 83.6 fl (82-101); Mean Platelet Volume 10.1 fL (7.4-10.4); Monocytes # 1.1 10^3/uL (0.2-0.9); Monocytes % 9.4 %; Neutrophils # 7.12 10^3/uL (1.8-7.7); Neutrophils % 59.4 %; Nucleated Red Blood Cells % 0 %; Platelet Count 335 10^3/cmm (157-399); Red Blood Count 6.23 10^6/uL (3.85-5.65); Red Cell Distribution Width 14.2 % (12.1-15.1)
[2024-08-11 05:43] LABS: Anion Gap 13.3 (5-19); Blood Urea Nitrogen 14 mg/dL (6-20); Calcium 9.6 mg/dL (8.5-10.5); Carbon Dioxide 26 mmol/L (22-29); Chloride 106 mmol/L (98-107); Glomerular Filtration Rate 118.4 mL/min (90-130); Glucose 98 mg/dL (65-115); Osmolality Calculated 292 mOsm/kg (285-295); Potassium 4.3 mmol/L (3.5-5.1); Sodium 141 mmol/L (136-145)
--- NOTE | 2024-08-11 07:49 | PC.NURSE ---
laboratory coordinator rounds 08/10 @9064- patient in the chair resting quietly, left stroke education book.
[2024-08-11] MEDS: clopidogrel 75 mg Tablet PO (08:31)
--- NOTE | 2024-08-11 11:43 | P.DS_ITS ---
Discharge Providers Date of Admission: 08/09/24 19:06 Date of Discharge: August 11, 2024 Attending Provider at Admission: John Fairbanks MD Attending Provider at Discharge: Darshana Villa MD Diagnoses at Discharge Discharge Diagnosis (1) Lacunar stroke, acute: Status: Acute Reason for Visit Reason for Visit: Stroke like symptoms Brief History: Maico Osorio is a 54 year old male with a past medical history significant for hypertension, congestive heart failure, coronary artery disease, and chronic back pain who presents emergency department with strokelike symptoms with onset at 4 PM today. Patient describes the onset of right sided numbness and tingling associated with slight weakness across the right side of his body. Endorses associated slightly slurred speech. Denies alleviating or aggravating factors. Denies prior history of stroke. In the emergency department, CT head was negative for acute findings. There was no large vessel occlusion or severe stenosis on head and neck CTA. There was moderate stenosis of the right vertebral artery as well as mild stenosis of the bilateral intracranial carotid arteries. [facility] neurology evaluated the patient recommending TNKase which was administered. Hospital Course Hospital Course He was monitored in ICU post TNKase, repeat CTH was normal. He was seen by PT and recommended outpatient PT. Neurology recommended outpatient follow up, cardiology follow up, Event monitor for 30 days and sleep study follow up PCP in 2 weeks Physical Exam Narrative: General: Patient is awake and alert. Head: Normocephalic. Atraumatic. EOM intact. Neck: No JVD. Cardiovascular: RRR. No gallops. No murmurs. Trace pedal edema. Lungs: Clear to auscultation, no use of accessory muscles, no crackles or wheezes. Skin: No jaundice. No rashes. Abdomen: Normal bowel sounds, abdomen soft and nontender. Extremities: No cyanosis or clubbing. Musculoskeletal: No swollen or erythematous joints. Neurological: Moves all 4 extremities. No myoclonus. Cranial nerves II through XII grossly intact. Sensation slightly decreased in right upper and lower extremities. Power 5/5 Discharge Data Studies Completed and Pending Completed Studies During Hospitalization Category Date Time Status CT angio headneck* [id number] Stat Cat Scan 08/09/24 17:[address] head thrombolytic [id number] Stat Cat Scan 08/09/24 17:[address] head wo con* [id number] Stat Cat Scan 08/10/24 14:56 Completed CV. echo wo/w contrast [id number] Routine Ultrasound 08/09/24 21:38 Completed Radiology Impressions Head/Neck CTA 08/09/24 17:39 IMPRESSION: 1. No large vessel occlusion or severe stenosis. 2. Moderate stenosis of the right vertebral artery. 3. Mild stenosis of bilateral intracranial carotid arteries, [id number]-left. IMPRESSION: 1. No large vessel occlusion or flow-limiting arterial stenosis. 2. Nonspecific bilateral level 2A cervical lymphadenopathy, [id number]-[id number]-left. REFERENCES: NASCET CRITERIA. The degree of stenosis in the cervical segment of the internal carotid artery is based on NASCET criteria. Normal is no stenosis. Mild is less than 50% stenosis. Moderate is 50-69% stenosis. Severe is 70% to 99% stenosis. Total occlusion is no detectable patent lumen. Head CT 08/10/24 14:56 IMPRESSION: No acute intracranial findings. ASSESSMENT: ASPECTS ([place] Stroke Program Early CT Score) is 10. ADDENDUM: 08/10/24 1546 COMMENT: THIS REPORT CONTAINS FINDINGS THAT MAY BE CRITICAL TO PATIENT CARE. The exam findings were verbally communicated by me to Darshana Villa via telephone conference at 3:44 PM CDT on 08/10/2024. The findings were acknowledged and understood. Laboratory Results WBC 12.00 10^3/uL (3.29-11.43) H 08/11/24 04:21 RBC 6.23 10^6/uL (3.85-5.65) H 08/11/24 04:21 Hgb 16.40 g/dL (11.27-16.99) 08/11/24 04:21 Hct 52.1 % (37-53) 08/11/24 04:21 MCV 83.6 fl (82-101) 08/11/24 04:21 MCH 26.3 pg (27-33) L 08/11/24 04:21 MCHC 31.5 g/dL (30-55) 08/11/24 04:21 RDW 14.2 % (12.1-15.1) 08/11/24 04:21 Plt Count 335 10^3/cmm (157-399) 08/11/24 04:21 MPV 10.1 fL (7.4-10.4) 08/11/24 04:21 Neut % (Auto) 59.4 % 08/11/24 04:21 Lymph % (Auto) 25.8 % 08/11/24 04:21 Powell % (Auto) 9.4 % 08/11/24 04:21 Eos % (Auto) 3.0 % 08/11/24 04:21 Baso % (Auto) 1.1 % 08/11/24 04:21 Neut # (Auto) 7.12 10^3/uL (1.8-7.7) 08/11/24 04:21 Lymph # (Auto) 3.1 10^3/uL (0.8-4.8) 08/11/24 04:21 Powell # (Auto) 1.1 10^3/uL (0.2-0.9) H 08/11/24 04:21 Eos # (Auto) 0.4 10^3/uL (0.0-0.8) 08/11/24 04:21 Baso # (Auto) 0.1 10^3/uL (0.0-0.1) 08/11/24 04:21 Nucleated RBC % (auto) 0 % 08/11/24 04:21 Nucleated RBCs # 0.0 /100WBC 08/11/24 04:21 PT 13.10 SECONDS (12.1-14.9) 08/09/24 17:32 INR 0.93 (0.8-1.2) 08/09/24 17:32 APTT 29.9 SECONDS (23.9-36.7) 08/09/24 17:32 Sodium 141 mmol/L (136-145) 08/11/24 04:21 Potassium 4.3 mmol/L (3.5-5.1) 08/11/24 04:21 Chloride 106 mmol/L (98-107) 08/11/24 04:21 Carbon Dioxide 26 mmol/L (22-29) 08/11/24 04:21 Anion Gap 13.3 (5-19) 08/11/24 04:21 BUN 14 mg/dL (6-20) 08/11/24 04:21 Creatinine 0.7 mg/dL (0.7-1.2) 08/11/24 04:21 GFR Calculation 118.4 mL/min (90-130) 08/11/24 04:21 Glucose 98 mg/dL (65-115) 08/11/24 04:21 POC Glucose 119 mg/dL (70-110) H 08/10/24 06:21 Estimat Average Glucose 146 08/10/24 04:12 Hemoglobin A1c 6.7 % (4.0-6.0) H 08/10/24 04:12 Calculated Osmolality 292 mOsm/kg (285-295) 08/11/24 04:21 Calcium 9.6 mg/dL (8.5-10.5) 08/11/24 04:21 Magnesium 2.3 mg/dL (1.7-2.3) 08/10/24 04:12 Total Bilirubin 0.4 mg/dL (0.15-1.2) 08/10/24 04:12 AST 29 U/L (0-40) 08/10/24 04:12 ALT 46 U/L (0-41) H 08/10/24 04:12 Alkaline Phosphatase 128 U/L (40-130) 08/10/24 04:12 C-Reactive Protein 41.5 mg/L (0.0-4.9) H 08/09/24 17:32 Total Protein 7.2 g/dL (6.6-8.7) 08/10/24 04:12 Albumin 3.8 g/dL (3.5-5.2) 08/10/24 04:12 Globulin 3.4 g/dL (1.3-4.6) 08/10/24 04:12 Triglycerides 129 mg/dL (0-150) 08/10/24 04:12 Cholesterol 237 mg/dL (0-200) H 08/10/24 04:12 LDL Cholesterol, Calc 165 mg/dL (50-129) H 08/10/24 04:12 HDL Cholesterol 46 mg/dL (60-100) L 08/10/24 04:12 LDL/HDL Ratio 3.59 RATIO (0.00-3.22) H 08/10/24 04:12 Cholesterol/HDL Ratio 5.15 mg/dL (1.0-5.00) H 08/10/24 04:12 Procalcitonin 0.14 ng/mL (0-0.5) 08/09/24 17:32 Urine Color Yellow (Yellow) 08/09/24 18:43 Urine Appearance Clear (CLEAR) 08/09/24 18:43 Urine pH 6.0 (5-7) 08/09/24 18:43 Ur Specific [place] 1.082 (1.005-1.030) H 08/09/24 18:43 Urine Protein Negative (Negative) 08/09/24 18:43 Urine Glucose (UA) Negative (Normal) 08/09/24 18:43 Urine Ketones Negative (Negative) 08/09/24 18:43 Urine Blood Negative (Negative) 08/09/24 18:43 Urine Nitrate Negative (Negative) 08/09/24 18:43 Urine Bilirubin Negative (Negative) 08/09/24 18:43 Urine Urobilinogen 0.2 mg/dL (Negative) 08/09/24 18:43 Ur Leukocyte Esterase Negative (Negative) 08/09/24 18:43 Urine RBC 0-2 /hpf (0-2) 08/09/24 18:43 Urine WBC 0-5 /hpf (0-5) 08/09/24 18:43 Ur Squamous Epith Cells 0-5 /hpf (0-5) 08/09/24 18:43 Amorphous Sediment Not Reportable 08/09/24 18:43 Urine Bacteria None seen /hpf (NONE) 08/09/24 18:43 Hyaline Casts 0-4 /lpf H 08/09/24 18:43 Urine Opiates Screen Negative ng/mL (Negative) 08/09/24 18:43 Ur Barbiturates Screen Negative ng/mL (Negative) 08/09/24 18:43 Ur Phencyclidine Scrn Negative ng/mL (Negative) 08/09/24 18:43 Ur Amphetamines Screen Negative ng/mL (Negative) 08/09/24 18:43 U Benzodiazepines Scrn Negative ng/mL (Negative) 08/09/24 18:43 Urine Cocaine Screen Negative ng/mL (Negative) 08/09/24 18:43 U Marijuana (THC) Screen Negative ng/mL (Negative) 08/09/24 18:43 Vitals Last Vital Signs Temp 97.7 F 08/11/24 03:00 Pulse 81 08/11/24 06:35 Resp 18 08/11/24 00:00 BP 139/95 08/11/24 06:00 Pulse Ox 92 08/11/24 06:00 O2 Del Method Room Air 08/11/24 04:00 Discharge Plan Discharge Patient Disposition: Home Condition: Stable Prescriptions: New atorvastatin 40 mg Tablet 40 mg PO BEDTIME 30 Days Qty: 30 0RF clopidogrel 75 mg Tablet 75 mg PO DAILY 30 Days Qty: 30 0RF aspirin 81 mg capsule 81 mg PO DAILY Qty: 30 0RF Rx Instructions: start taking from 08/18/24 Continued ondansetron 8 mg tablet,disintegrating 8 mg PO PRN PRN (Reason: Nausea) lisinopril 10 mg tablet 10 mg PO DAILY Discontinued potassium chloride 10 mEq tablet extended release 10 meq PO DAILY furosemide 20 mg tablet 20 mg PO DAILY amoxicillin-pot clavulanate 875-125 mg tablet 1 tab PO Q12H Discharge Orders: Discharge Order (Routine); Ordered 08/11/24 Ordered By: Darhsana Villa Referrals: [facility] Outpatient Therapy [Outside] (They will call you at home to setup at day to start coming in for Out Patient therapy. ) Kristin Kelley NP [Nurse Practitioner] - 08/25/24 [facility] sleep study [Other] - 08/11/24 12:00 pm (sleep apnea testing) Samantha Herman MD [Physician] - 09/01/24 Discharge Diet: Cardiac Discharge Activity: As per PT/OT instructions Patient Instructions: Opioid Safety Discharge Attestations Time Spent in Discharge Care*: less than 30 min Quality Metrics Clinical Quality Measures [ No reported AMI, CVA or VTE this stay] Coding Level of Care Code Acute Code for g Fwd Diagnoses Lacunar stroke, acute I63.81 Time Spent (min) 20
--- NOTE | 2024-08-11 11:58 | PC.SOCIAL ---
IMM Updated Updated pt on IMM. No questions voiced. Provided pt a copy. Initialed, dated, & timed a copy & placed in chart.
--- NOTE | 2024-08-11 15:00 | DCPLANNER ---
called This patients phone number [phone] answer phones appointmnet with cardiology service has now been inputted in remind them to wrrite appointment with ady Kelley for this date July at time
--- NOTE | 2024-08-11 15:06 | DCPLANNER ---
called regarding follow up appointment that was not at time of discharge to remind patient Maico Osorio for this new appointment scheduled
--- NOTE | 2024-08-11 15:09 | DCPLANNER ---
this fiction and nonfiction prose writer called patient Devon aparicio for new appointment ,not scheduled at time of discharged for the following date of 09-14-2024 at time of 08:45 With [facility] Kristin Kelley aprn
== END 2024-08-11 12:45 | disposition home or self-care (01) | DRG 62 ==
LOC: ER 20:02 → ICU 20:42
PROVIDERS: Admitting Provider Internal Medicine; Emergency Provider Student in an Organized Health Care Education/Training Program; Visit Provider Internal Medicine
DX: I63.81 Other cerebral infarction due to occlusion or stenosis of small artery (principal); G81.91 Hemiplegia, unspecified affecting right dominant side; R20.2 Paresthesia of skin; R47.81 Slurred speech; I11.0 Hypertensive heart disease with heart failure; I50.9 Heart failure, unspecified; I25.10 Atherosclerotic heart disease of native coronary artery without angina pectoris; G89.29 Other chronic pain; M54.9 Dorsalgia, unspecified; I65.01 Occlusion and stenosis of right vertebral artery; I65.23 Occlusion and stenosis of bilateral carotid arteries; R73.9 Hyperglycemia, unspecified; G47.33 Obstructive sleep apnea (adult) (pediatric)
CPT/HCPCS: 36415; 36416; 70450; 70496; 70498; 80048; 80053; 80061; 80306; 81001; 82962; 83036; 83735; 84145; 85025; 85610; 85730; 86140; 92523; 92610; 93005; 96374; 97110; 97116; 97162; 97166; 99285; C8929; J0780; J2405; J3101; J9999

== ENCOUNTER 2024-08-26 11:50 | Outpatient (RCR) | payer MEDICARE, SELFPAY | END 2024-09-18 23:59 | disposition home or self-care (01) | LOC: SPT 11:50 | PROVIDERS: Visit Provider Internal Medicine | DX: I63.81 Other cerebral infarction due to occlusion or stenosis of small artery (principal); M21.371 Foot drop, right foot; R26.89 Other abnormalities of gait and mobility | CPT/HCPCS: 97162 ==

== ENCOUNTER 2024-09-05 04:44 | Emergency (ER) | payer MEDICARE, SELFPAY ==
[2024-09-05 04:58] VITALS: BP 140/88; PULSE 83; RESP 18; TEMP 36.8; O2SAT 91; BMI 38.0
--- NOTE | 2024-09-05 05:05 | XRR_ITS ---
PROCEDURE INFORMATION: Exam: XR Right Knee Exam date and time: 09/05/2024 5:06 AM Age: 54 years old Clinical indication: Right; C/O RT knee pain with difficulty bearing weight. No injury. ; Additional info: R knee pain TECHNIQUE: Imaging protocol: Radiologic exam of the right knee. Views: 3 views. COMPARISON: No relevant prior studies available. FINDINGS: Bones/joints: No acute fracture or dislocation. Joint spaces are preserved. Enthesopathic changes at the quadriceps and patellar tendon insertions. Soft tissues: Normal. XR/XR knee RT 3V* [id number] IMPRESSION: No acute fracture or dislocation.
--- NOTE | 2024-09-05 05:09 | USR_ITS ---
PROCEDURE INFORMATION: Exam: US Duplex Right Lower Extremity Veins, Limited Exam date and time: 09/05/2024 5:40 AM Age: 54 years old Clinical indication: Pain; Leg, lower; Right; Additional info: Rle pain TECHNIQUE: Imaging protocol: Real-time duplex ultrasound of the right extremity with 2-D pratt scale, color Doppler flow and spectral waveform analysis including responses to compression and other maneuvers (when performed) with image documentation. Limited exam was focused on the right lower extremity veins. COMPARISON: CR (LOW EXM, ) 09/05/2024 5:06 AM FINDINGS: Right deep veins: Unremarkable. The common femoral, femoral, proximal profunda femoral and popliteal veins are patent without thrombus. Normal Doppler waveforms. Normal compressibility and/or augmentation response. Superficial veins: Greater saphenous vein at the saphenofemoral junction is patent without thrombus. Soft tissues: Unremarkable. US/[place] [id number] IMPRESSION: No evidence of deep vein thrombosis.
[2024-09-05] MEDS: oxyCODONE-APAP 5-325 mg Tablet 2 TAB PO (05:20)
[2024-09-05] MEDS: ketorolac 30 mg/mL INJ IM (05:20)
--- NOTE | 2024-09-05 05:39 | ED_ITS ---
HPI - Extremity Problem General: Chief complaint: Extremity Injury, Lower Stated complaint: R knee pain can't walk on it Time Seen by Provider: 09/05/24 05:00 History of Present Illness: 54-year-old male patient with right knee pain. He states that he walked quite a bit on his knee yesterday, and started to experience pain with inability to bear weight. No injury otherwise. He notes some mild swelling. No fever. No rash. Related Data Home Medications ?Medication ?Instructions ?Recorded ?Confirmed lisinopril 10 mg tablet 10 mg PO DAILY 08/10/2407/21 ondansetron 8 mg disintegrating 8 mg PO PRN PRN Nausea 08/10/24 08/10/24 tablet Previous Rx's ?Medication ?Instructions ?Recorded aspirin 81 mg capsule 81 mg PO DAILY #30 caps 07/21 07/13 atorvastatin 40 mg tablet 40 mg PO BEDTIME 30 days #30 tabs 08/11/24 clopidogrel 75 mg tablet 75 mg PO DAILY 30 days #30 t abs 08/11/24 hydrocodone 5 mg-acetaminophen 325 1 tab PO Q8H PRN pa in #7 tabs 09/05/24 mg tablet Allergies Allergy/AdvReac Type Severity Reaction Status Date / Time No Known Allergies Allergy Verified 08/09/24 17:33 [facility] ED PFSH: Medical History (Updated 09/05/24 @ 06:01 by Sal Duarte DO) Cerebrovascular accident Chronic back pain Coronary artery disease Congestive heart failure Hypertension Surgical History (Updated 08/09/24 @ 19:38 by John Fairbanks MD) History of hand surgery Family History (Updated 08/09/24 @ 19:38 by John Fairbanks MD) Father Heart disease Social History (Updated 08/09/24 @ 19:38 by John Fairbanks MD) Smoking and tobacco/nicotine status: never used tobacco/nicotine Alcohol intake: never Substance/Drug Use: never Physical Exam Const: COMMON NORMALS: no acute distress GENERAL APPEARANCE: cooperative; not ill appearing ORIENTATION/CONSCIOUSNESS: Yes awake, Yes oriented to person, Yes oriented to place and Yes oriented to time HENMT: COMMON NORMALS: normocephalic HEAD & SCALP: normocephalic Eye: COMMON NORMALS: Equal, round and reactive pupils present and EOMs intact bilaterally PUPIL: Yes Equal, round and reactive pupils present Neck/C-Spine: GENERAL: Yes trachea midline Resp: COMMON NORMALS: normal respiratory effort and No use of accessory muscles Cardio: COMMON NORMALS: regular rate and regular rhythm RATE: regular rate RHYTHM: regular rhythm Extremity: NARRATIVE EXTREMITY EXAM: Exam the right lower extremity reveals no deformity. Extremities warm. Pulses are normal to the dorsalis pedis and posterior tibialis arteries. There are some mild edema. Minimal reproducible knee pain. Mild knee effusion. No warmth. No redness. Tenderness is in the calf. Neuro: SENSORIUM/ORIENTATION: Yes oriented to person, Yes oriented to place and Yes oriented to time Course Vital Signs: Vital signs: Vital Signs Temperature 98.2 F 09/05/24 04:58 Pulse Rate 83 09/05/24 04:58 Respiratory Rate 18 09/05/24 04:58 Blood Pressure 140/88 09/05/24 04:58 Pulse Oximetry 91 09/05/24 04:58 MDM - Extremity (Nontraumatic) Medical Decision Making 54 year old male with knee pain and mild effusion. There is no warmth. No redness. Diffuse tenderness. X-ray shows no acute change or fracture. There's a mild effusion. Venous duplex shows no clot. He'll be discharged. Knee immobilizer for weight bearing until tolerates out of the brace. Ice. short course of anti inflammatories, as the patient is on Plavix. may use hydrocodone for significant pain. Outpatient follow up. He knows he is to return for any red flag symptoms such as worsening swelling, heat, redness, etcetera. Lab Data Radiology Impressions Knee X-Ray 09/05/24 05:05 IMPRESSION: No acute fracture or dislocation. Venous Duplex 09/05/24 05:09 IMPRESSION: No evidence of deep vein thrombosis. All radiology interpretation(s) finalized by discharge Discharge Plan Discharge Patient Disposition: Home Clinical Impression: Effusion of knee joint right Condition: Stable Prescriptions: New hydrocodone-acetaminophen 5-325 mg tablet 1 tab PO Q8H PRN (Reason: pain) Qty: 7 0RF No Action ondansetron 8 mg tablet,disintegrating 8 mg PO PRN PRN (Reason: Nausea) lisinopril 10 mg tablet 10 mg PO DAILY atorvastatin 40 mg Tablet 40 mg PO BEDTIME 30 Days Qty: 30 0RF clopidogrel 75 mg Tablet 75 mg PO DAILY 30 Days Qty: 30 0RF aspirin 81 mg capsule 81 mg PO DAILY Qty: 30 0RF Rx Instructions: start taking from 08/18/24 Discharge Orders: Discharge ED (Routine); Ordered 09/05/24 Ordered By: Sal Duarte Patient Instructions: Swollen Knee Joint (ED), Opioid Safety, Pain Management Activity Restrictions/Additional Instructions: Use crutches for weightbearing as tolerated. You may bear weight, when you feel able. Ice for pain and swelling. Use medication for significant pain. Call your doctor Friday for a follow-up appointment. Print Language: Mohawk Coding Level of Care Code ED Member Certification Manager for Samantha Grimaldo
== END 2024-09-05 06:39 | disposition home or self-care (01) ==
PROVIDERS: Emergency Provider Emergency Medicine
DX: M25.461 Effusion, right knee (principal); I11.0 Hypertensive heart disease with heart failure; I50.9 Heart failure, unspecified; I25.10 Atherosclerotic heart disease of native coronary artery without angina pectoris; Z79.899 Other long term (current) drug therapy
CPT/HCPCS: 73562; 93971; 96372; 99284; J1885; J9999

== ENCOUNTER 2024-09-07 08:21 | Emergency (ER) | payer MEDICARE, SELFPAY ==
[2024-09-07 08:30] VITALS: BP 149/108; PULSE 101; RESP 18; TEMP 36.6; O2SAT 96
[2024-09-07 09:46] LABS: Basophils # 0.1 10^3/uL (0.0-0.1); Basophils % 0.7 %; Eosinophils # 0.5 10^3/uL (0.0-0.8); Hematocrit 49.6 % (37-53); Lymphocytes % 17.6 %; Mean Corpuscular HGB Conc 32.9 g/dL (30-55); Mean Corpuscular Hemoglobin 26.5 pg (27-33); Mean Corpuscular Volume 80.5 fl (82-101); Mean Platelet Volume 9.3 fL (7.4-10.4); Monocytes # 1.1 10^3/uL (0.2-0.9); Monocytes % 9.8 %; Neutrophils # 7.59 10^3/uL (1.8-7.7); Neutrophils % 67.5 %; Nucleated Red Blood Cells % 0 %; Platelet Count 208 10^3/cmm (157-399); Red Blood Count 6.16 10^6/uL (3.85-5.65); Red Cell Distribution Width 15.3 % (12.1-15.1); White Blood Count 11.25 10^3/uL (3.29-11.43)
--- NOTE | 2024-09-07 09:55 | ED_ITS ---
HPI - Extremity Problem 2 General: Chief complaint: Extremity Injury, Upper Stated complaint: pain/stiffness both hands Time Seen by Provider: 09/07/24 08:48 Source: patient and family Mode of arrival: ambulatory Limitations: no limitations History of Present Illness: Patient is a nice 54-year-old male presents to ED today with a main complaint of pain and swelling to his left hand. Patient states approximately 2 days or so ago his right knee flared up with swelling and pain. He was subsequently seen here in the emergency department. He states this only lasted a day or so. He then states his left knee flared up and did the same thing again only lasting a day or so. He states today he woke up and now it is his left hand. No known history of polyarthralgia/rheumatoid arthritis. No systemic symptoms. MD Complaint: extremity pain and extremity swelling Onset (ago): day(s) Pain Consistency: constant Location: left and upper extremity Radiation: none Relieving factors: nothing Exacerbating factors: range of motion and palpation Associated symptoms: Reports no associated symptoms; Deny chest pain, fever(s) or rash Related Data Home Medications ?Medication ?Instructions ?Recorded ?Confirmed lisinopril 10 mg tablet 10 mg PO DAILY 08/10/2407/21 ondansetron 8 mg disintegrating 8 mg PO PRN PRN Nausea 08/10/24 08/10/24 tablet Previous Rx's ?Medication ?Instructions ?Recorded aspirin 81 mg capsule 81 mg PO DAILY #30 caps 07/21 07/13 atorvastatin 40 mg tablet 40 mg PO BEDTIME 30 days #30 tabs 08/11/24 clopidogrel 75 mg tablet 75 mg PO DAILY 30 days #30 t abs 08/11/24 hydrocodone 5 mg-acetaminophen 325 1 tab PO Q8H PRN pa in #7 tabs 09/05/24 mg tablet Allergies Allergy/AdvReac Type Severity Reaction Status Date / Time No Known Allergies Allergy Verified 08/09/24 17:33 Review of Systems 2 Const: Denies: fever(s), chills, body aches, fatigue or malaise Card: Denies: chest pain Resp: Denies: dyspnea GI: Denies: abdominal pain Musc: Reports: extremity pain (L hand) and extremity swelling (L hand); Denies: neck pain, back pain, joint redness, muscle cramps or muscle weakness Skin/Breast: Denies: rash Neuro: Denies: headache(s), numbness in extremities, weakness in extremities, sensory changes or difficulty walking PFSH ED 2 PFSH: Medical History Cerebrovascular accident Chronic back pain Coronary artery disease Congestive heart failure Hypertension Surgical History History of hand surgery Family History Father Heart disease Social History Smoking and tobacco/nicotine status: never used tobacco/nicotine Alcohol intake: never Substance/Drug Use: never Physical Exam 2 Const: COMMON NORMALS: no acute distress, patient oriented x3, no limitations, alert and well nourished GENERAL APPEARANCE: cooperative NUTRITIONAL APPEARANCE: obese (BMI 38.0) HENMT: COMMON NORMALS: normocephalic and atraumatic HEAD & SCALP: normal to inspection, normocephalic and atraumatic Resp: COMMON NORMALS: normal respiratory effort and clear to auscultation bilaterally AUSCULTATION: clear to auscultation bilaterally Cardio: COMMON NORMALS: regular rate and regular rhythm RATE: regular rate RHYTHM: regular rhythm Back/Pelvis: COMMON NORMALS: thoracic and lumbar spine normal to inspection and no thoracic nor lumbar tenderness Extremity: COMMON NORMALS: capillary refill normal, no calf tenderness and no pedal edema GENERAL: Yes normal exam except as noted LEFT UPPER EXTREMITY: Yes hand & digits (edema/warmth/tenderness dorsum of L hand) Left hand and digits: Yes neurovascular exam (normal) Neuro: COMMON NORMALS: patient oriented x3, moves all extremities, no focal motor deficits, no sensory deficits noted and gait normal S ENSORIUM/ORIENTATION: Yes alert Skin: COMMON NORMALS: no rashes or lesions noted GENERAL SKIN EXAM: no rashes or lesions noted Course 2 Vital Signs: Vital signs: Vital Signs Temperature 97.9 F 09/07/24 08:30 Pulse Rate 90 09/07/24 10:03 Respiratory Rate 18 09/07/24 08:30 Blood Pressure 149/108 09/07/24 08:30 Pulse Oximetry 95 09/07/24 10:03 Oxygen Delivery Me thod Room Air 09/07/24 10:03 MDM - Extremity (Nontraumatic) Medical Decision Making Patient here for edema/pain/warmth to L hand. Over the past few days his bilateral knee pains have had similar symptoms but these are completely resolved today. Extremity NV intact. Nothing to suggest septic arthritis based on history. No systemic complaints. No history of tick bite. Due to polyarthragia symptoms I think rheumatology follow-up may be of benefit. Labs today overall fairly unremarkable. Normal white count. Inflammatory marker mildly elevated at 27.7. Medical Records I reviewed the patient's medical records. Lab Data I reviewed the patient's lab results. 09/07/24 09:32 09/07/24 09:32 Laboratory Results WBC 11.25 10^3/uL (3.29-11.43) 09/07/24 09:32 RBC 6.16 10^6/uL (3.85-5.65) H 09/07/24 09:32 Hgb 16.30 g/dL (11.27-16.99) 09/07/24 09:32 Hct 49.6 % (37-53) 09/07/24 09:32 MCV 80.5 fl (82-101) L 09/07/24 09:32 MCH 26.5 pg (27-33) L 09/07/24 09:32 MCHC 32.9 g/dL (30-55) 09/07/24 09:32 RDW 15.3 % (12.1-15.1) H 09/07/24 09:32 Plt Count 208 10^3/cmm (157-399) 09/07/24 09:32 MPV 9.3 fL (7.4-10.4) 09/07/24 09:32 Neut % (Auto) 67.5 % 09/07/24 09:32 Lymph % (Auto) 17.6 % 09/07/24 09:32 Graham % (Auto) 9.8 % 09/07/24 09:32 Eos % (Auto) 4.0 % 09/07/24 09:32 Baso % (Auto) 0.7 % 09/07/24 09:32 Neut # (Auto) 7.59 10^3/uL (1.8-7.7) 09/07/24 09:32 Lymph # (Auto) 2.0 10^3/uL (0.8-4.8) 09/07/24 09:32 Graham # (Auto) 1.1 10^3/uL (0.2-0.9) H 09/07/24 09:32 Eos # (Auto) 0.5 10^3/uL (0.0-0.8) 09/07/24 09:32 Baso # (Auto) 0.1 10^3/uL (0.0-0.1) 09/07/24 09:32 Nucleated RBC % (auto) 0 % 09/07/24 09:32 Nucleated RBCs # 0.0 /100WBC 09/07/24 09:32 Sodium 137 mmol/L (136-145) 09/07/24 09:32 Potassium 4.4 mmol/L (3.5-5.1) 09/07/24 09:32 Chloride 103 mmol/L (98-107) 09/07/24 09:32 Carbon Dioxide 22 mmol/L (22-29) 09/07/24 09:32 Anion Gap 16.4 (5-19) 09/07/24 09:32 BUN 13 mg/dL (6-20) 09/07/24 09:32 Creatinine 0.8 mg/dL (0.7-1.2) 09/07/24 09:32 GFR Calculation 101.5 mL/min (90-130) 09/07/24 09:32 Glucose 104 mg/dL (65-115) 09/07/24 09:32 Calculated Osmolality 284 mOsm/kg (285-295) L 09/07/24:32 Calcium 9.6 mg/dL (8.5-10.5) 09/07/24 09:32 Total Bilirubin 0.5 mg/dL (0.15-1.2) 09/07/24 09:32 AST 15 U/L (0-40) 09/07/24:32 ALT 25 U/L (0-41) 09/07/24 09:32 Alkaline Phosphatase 120 U/L (40-130) 09/07/24 09:32 C-Reactive Protein 27.7 mg/L (0.0-4.9) H 09/07/24 09:32 Total Protein 7.4 g/dL (6.6-8.7) 09/07/24 09:32 Albumin 3.8 g/dL (3.5-5.2) 09/07/24 09:32 Globulin 3.6 g/dL (1.3-4.6) 09/07/24 09:32 No radiology studies performed this visit Discharge Plan Discharge Condition: Stable Prescriptions: No Action ondansetron 8 mg tablet,disintegrating 8 mg PO PRN PRN (Reason: Nausea) lisinopril 10 mg tablet 10 mg PO DAILY atorvastatin 40 mg Tablet 40 mg PO BEDTIME 30 Days Qty: 30 0RF clopidogrel 75 mg Tablet 75 mg PO DAILY 30 Days Qty: 30 0RF aspirin 81 mg capsule 81 mg PO DAILY Qty: 30 0RF Rx Instructions: start taking from 08/18/24 hydrocodone-acetaminophen 5-325 mg tablet 1 tab PO Q8H PRN (Reason: pain) Qty: 7 0RF Print Language: [place] Islander Coding Level of Care Code ED Hand Fur Cleaner for Samantha Grimaldo
[2024-09-07 10:03] VITALS: PULSE 90; O2SAT 95
[2024-09-07 10:08] LABS: Alanine Aminotransferase 25 U/L (0-41); Albumin Level 3.8 g/dL (3.5-5.2); Alkaline Phosphatase 120 U/L (40-130); Anion Gap 16.4 (5-19); Aspartate Amino Transferase 15 U/L (0-40); Blood Urea Nitrogen 13 mg/dL (6-20); C Reactive Protein 27.7 mg/L (0.0-4.9); Calcium 9.6 mg/dL (8.5-10.5); Carbon Dioxide 22 mmol/L (22-29); Chloride 103 mmol/L (98-107); Creatinine Clr Calc Pharmacy 148.7481; Globulin 3.6 g/dL (1.3-4.6); Glomerular Filtration Rate 101.5 mL/min (90-130); Glucose 104 mg/dL (65-115); Osmolality Calculated 284 mOsm/kg (285-295); Potassium 4.4 mmol/L (3.5-5.1); Sodium 137 mmol/L (136-145); Total Bilirubin 0.5 mg/dL (0.15-1.2); Total Protein 7.4 g/dL (6.6-8.7)
[2024-09-07] MEDS: ketorolac 30 mg/mL INJ IM (10:19)
[2024-09-07] MEDS: dexamethasone 10 mg/mL INJ IM (10:19)
[2024-09-07 10:44] VITALS: BP 145/90; PULSE 90; O2SAT 92
--- NOTE | 2024-09-09 08:32 | DCPLANNER ---
Referral sent to [facility]
== END 2024-09-07 10:45 | disposition home or self-care (01) ==
PROVIDERS: Family Medicine; Emergency Provider Physician Assistant
DX: R60.0 Localized edema (principal); Z79.82 Long term (current) use of aspirin; Z79.02 Long term (current) use of antithrombotics/antiplatelets; I25.10 Atherosclerotic heart disease of native coronary artery without angina pectoris; I11.0 Hypertensive heart disease with heart failure; I50.9 Heart failure, unspecified
CPT/HCPCS: 36415; 80053; 85025; 86140; 96372; 99284; J1100; J1885

== ENCOUNTER → 2024-09-14 10:20 | Outpatient (BNVA) | payer MEDICARE, SELFPAY | PROVIDERS: Visit Provider Internal Medicine Cardiovascular Disease | DX: I50.9 Heart failure, unspecified (principal); R58 Hemorrhage, not elsewhere classified | CPT/HCPCS: 36415; 80048; 85025; 85610 ==

== ENCOUNTER → 2024-09-15 08:19 | Outpatient (BNVA) | payer MEDICARE, SELFPAY | PROVIDERS: Visit Provider Specialist | DX: I63.81 Other cerebral infarction due to occlusion or stenosis of small artery (principal); R22.32 Localized swelling, mass and lump, left upper limb; I63.9 Cerebral infarction, unspecified; E11.40 Type 2 diabetes mellitus with diabetic neuropathy, unspecified; E78.00 Pure hypercholesterolemia, unspecified; E66.01 Morbid (severe) obesity due to excess calories | CPT/HCPCS: 36415; 86160; 86162; 86200; 86235; 86255; 86376; 86431; 99214 ==

== ENCOUNTER 2024-09-26 17:08 | Emergency (ER) | payer MEDICARE, SELFPAY ==
[2024-09-26 17:09] VITALS: BP 107/72; PULSE 83; RESP 16; TEMP 36.4; O2SAT 96; BMI 41.3
--- NOTE | 2024-09-26 18:23 | ED_ITS ---
HPI - Back Pain/Injury General: Chief Complaint: Back Pain/Injury Stated Complaint: lower back pain Time Seen by Provider: 09/26/24 17:16 Source: patient Mode of arrival: ambulatory Limitations: no limitations History of Present Illness: Patient is a 54-year-old male that presents to the emergency department with right sided low back pain that radiates down his right leg. The patient states he had been doing some bending and lifting before this pain started. He denies any fall or traumatic injury. He states that has been going on for about 2 days. He does not report any loss of bowel or bladder control. He states he has had sciatica in the past. The patient had a recent stroke and he is on Plavix. He states he is scheduled for a heart procedure in the morning. He denies any fever or chills. He denies any numbness or tingling. He denies any chest pain or shortness of breath. He presents to the emergency department for further evaluation and treatment. Associated symptoms: Deny abdominal pain, chills, dysuria, fever(s), nausea or vomiting Related Data Home Medications ?Medication ?Instructions ?Recorded ?Confirmed lisinopril 10 mg tablet 10 mg PO DAILY 08/10/2408/20 ondansetron 8 mg disintegrating 8 mg PO PRN PRN Nausea 08/10/24 09/15/24 tablet Previous Rx's ?Medication ?Instructions ?Recorded aspirin 81 mg capsule 81 mg PO DAILY #30 caps 07/21 07/13 atorvastatin 40 mg tablet (Lipitor) 40 mg PO DAILY #90 tabs 09/14/24 clopidogrel 75 mg tablet (Plavix) 75 mg PO DAILY #90 t abs 09/14/24 dapagliflozin propanediol 10 mg 10 mg PO DAILY #90 tab s 09/14/24 tablet (Farxiga) methocarbamol 750 mg tablet 1,500 mg (2 x 750 mg) PO T ID PRN 09/26/24 muscle pain #30 tabs prednisone 20 mg tablet 40 mg (2 x 20 mg) PO DAILY 5 days 09/26/24 #10 tabs Allergies Allergy/AdvReac Type Severity Reaction Status Date / Time No Known Allergies Allergy Verified 09/15/24 08:22 Review of Systems General: Reports: 10 or more systems reviewed and unremarkable except in HPI and below Const: Denies: fever(s) or chills Eyes: Denies: change in vision ENMT: Denies: throat pain or ear or mastoid pain Card: Denies: chest pain, palpitations, irregular heart rhythm or edema Resp: Denies: dyspnea, productive cough, non-productive cough or wheezing GI: Denies: abdominal pain, nausea or vomiting : Denies: flank pain, difficulty urinating or dysuria Musc: Reports: back pain (Right low back pain that radiates down the right leg) Skin/Breast: Denies: rash or erythema Neuro: Reports: weakness in extremities (Chronic in the right upper and lower extremity from a recent stroke); Denies: headache(s), numbness in extremities or sensory changes Psych: Denies: anxiety Endo: Denies: polyuria, polydipsia or tired all the time Tobias/Lymph: Denies: easy bruising, easy bleeding or petechiae All/Imm: Denies: urticaria or tongue swelling PFSH ED PFSH: Medical History Congestive heart failure Cerebrovascular accident Chronic back pain Coronary artery disease Hypertension Surgical History History of hand surgery Family History Father Heart disease Social History Smoking and tobacco/nicotine status: current every day tobacco/nicotine user (chewing tobacco) Alcohol intake: never Substance/Drug Use: never Physical Exam Const: COMMON NORMALS: no acute distress and no limitations GENERAL APPEARANCE: cooperative ORIENTATION/CONSCIOUSNESS: Yes awake HENMT: COMMON NORMALS: normocephalic, atraumatic and external ears normal HEAD & SCALP: normocephalic and atraumatic EXTERNAL EAR: Yes external ears normal Eye: COMMON NORMALS: conjunctivae normal CONJUNCTIVA: Yes conjunctivae normal Neck/C-Spine: COMMON NORMALS: full ROM CERVICAL SPINE: Yes cervical ROM normal Resp: COMMON NORMALS: normal respiratory effort, No retractions and clear to auscultation bilaterally AUSCULTATION: clear to auscultation bilaterally, no crackles, no rales, no rhonchi and no wheezes Cardio: COMMON NORMALS: regular rate and regular rhythm RATE: regular rate RHYTHM: regular rhythm : COMMON NORMALS: Yes no CVA tenderness BLADDER/KIDNEY EXAM: Yes no CVA tenderness Back/Pelvis: COMMON NORMALS: no CVA tenderness LUMBAR SPINE/LOWER BACK: Yes ROM limited (Due to pain in the right lumbar region) and Yes paraspinal muscle spasm Lumbar paraspinal muscle spasm: right Extremity: COMMON NORMALS: normal to inspection, full ROM and no calf tenderness Psych: COMMON NORMALS: mental status grossly normal and cooperative ATTITUDE: Yes calm SPEECH: Yes slurred (Patient has had a recent stroke) Skin: COMMON NORMALS: no rashes or lesions noted GENERAL SKIN EXAM: no rashes or lesions noted Course ED course: I discussed the case with Dr. Israel. He states that they may not want him on a steroid or muscle relaxer before his cardiac catheterization tomorrow. He recommended Tylenol, alternating ice and heat and picking up the medications after the procedure to take those as directed. Vital Signs: Vital signs: Vital Signs Temperature 97.5 F L 09/26/24 17:09 Pulse Rate 82 09/26/24 18:43 Respiratory Rate 16 09/26/24 17:09 Blood Pressure 127/99 09/26/24 18:43 Pulse Oximetry 96 09/26/24 18:43 Oxygen Delivery Me thod Room Air 09/26/24 17:09 MDM - Back Pain/Injury Medical Decision Making Patient was advised of the exam findings. He has no numbness or tingling. He does not report any loss of bowel or bladder control. His symptoms are consistent with sciatica on the right which she has had in the past. He states he was doing some bending and lifting before the symptoms started but has not had a fall or traumatic injury. X-ray was offered but the patient would like to decline as we will not be able to see the discs on the x-ray and the patient has not had a fall or traumatic injury concerning for possible fracture. The patient does have a cardiac catheterization tomorrow morning and so I recommended against any steroid or muscle relaxer at this time but he can fill his prescriptions tomorrow after the procedure and use them as directed. I recommend that he alternate ice and heat and return to the emergency department with any worsening symptoms. The patient expressed understanding. Differential Diagnosis Likely lumbar radiculopathy, sciatica and strain of lumbar region No radiology studies performed this visit Critical Care Time Critical Care Time: Critical Care Time: No Discharge Plan Discharge Patient Disposition: Home Clinical Impression: Acute right-sided back pain with sciatica Condition: Stable Prescriptions: New prednisone 20 mg tablet 40 mg PO DAILY 5 Days Qty: 10 0RF methocarbamol 750 mg tablet 1,500 mg PO TID PRN (Reason: muscle pain) Qty: 30 0RF Rx Instructions: No alcohol use or driving with this medication. No Action dapagliflozin propanediol [Farxiga] 10 mg tablet 10 mg PO DAILY Qty: 90 3RF clopidogrel [Plavix] 75 mg tablet 75 mg PO DAILY Qty: 90 3RF atorvastatin [Lipitor] 40 mg tablet 40 mg PO DAILY Qty: 90 3RF ondansetron 8 mg tablet,disintegrating 8 mg PO PRN PRN (Reason: Nausea) lisinopril 10 mg tablet 10 mg PO DAILY aspirin 81 mg capsule 81 mg PO DAILY Qty: 30 0RF Rx Instructions: start taking from 08/18/24 Discharge Orders: Discharge ED (Routine); Ordered 09/26/24 Ordered By: Roberto Smith Discharge Diet: Usual diet Discharge Activity: Increase activity as tolerated Patient Instructions: Sciatica (ED), Lower Back Exercises (ED), Opioid Safety, Pain Management Activity Restrictions/Additional Instructions: Take medication as directed. Your prescriptions were sent electronically to the [facility] pharmacy. Do not take these medications until after your cardiac procedure tomorrow. You may use Tylenol and alternate the ice and the heat in the meantime to help with the pain. Avoid activities that make the pain worse such as bending, lifting, twisting etc. Alternate ice and heat to the back. Ice for 20 minutes, then nothing for 20 minutes, then heat for 20 minutes. Repeat 4-5 times throughout the day. Follow-up with your doctor within 1 week for recheck. Return to the emergency department with any worsening symptoms such as fever, rash, loss of bowel or bladder control or any other worsening symptoms. Print Language: Mauritanian Coding Level of Care Code ED Power Generation Engineer for Samantha Grimaldo
[2024-09-26 18:43] VITALS: BP 127/99; PULSE 82; O2SAT 96
== END 2024-09-26 18:44 | disposition home or self-care (01) ==
PROVIDERS: Emergency Provider Physician Assistant
DX: M54.31 Sciatica, right side (principal); M54.9 Dorsalgia, unspecified; Z79.82 Long term (current) use of aspirin; Z79.02 Long term (current) use of antithrombotics/antiplatelets; F17.220 Nicotine dependence, chewing tobacco, uncomplicated; I25.10 Atherosclerotic heart disease of native coronary artery without angina pectoris; I11.0 Hypertensive heart disease with heart failure; I50.9 Heart failure, unspecified
CPT/HCPCS: 12345; 99283

== ENCOUNTER 2024-09-27 08:50 | Outpatient (CLI) | payer MEDICARE, SELFPAY ==
--- NOTE | 2024-09-24 11:24 | PC.NURSE ---
No answer when calling patient about pre cath instructions, voicemail left to return call.
[2024-09-27] VITALS (27 sets, daily range): BP systolic 112–154; BP diastolic 49–104; PULSE 66–90; RESP 14–23; TEMP 36.3–36.8; O2SAT 92–97; BMI 42.7
--- NOTE | 2024-09-27 09:06 | XACV_ITS ---
Exam Room: 2 Ht: 175 cm Wt: 131 kg BSA: 2.59 m2 Gender: Male : 1970 Any Known Allergies: No known allergies Exam Priority: Routine Procedure(s): Procedure Description: Diagnostic procedure Procedure Description: PCI procedure Procedure Description: Drug Eluting Coronary Stent Procedure Description: PTCA Procedure Description: Miscellaneous Procedure Description: ACT Procedure Description: Coronary Angiography Trell BATES; Diagnostic Cath Status: Elective Diagnostic Findings * Left Main has no disease. * Circumflex has no disease. * Distal Left Anterior Descending: significant 80% stenosis, MADELINE: 3 flow. * Right Posterior AV: obstructive 70% stenosis, MADELINE: 3 flow. * Coronary angiography shows right dominance. PCI Status: Elective PCI Indication: New Onset Angina <= 2 months Interventional Findings * Distal Left Anterior Descendin% stenosis treated with a AB TREK 2.50X12 RX BALLOON, IVORY Wise STEPHANIE 3.0X18 KAROL, and MDT DALIA EUPHORA RX [id number] BALLOON. 0% residual stenosis, MADELINE: 3 flow. Conclusions 1. There is significant coronary artery disease with two vessel disease. 2. Distal Left Anterior Descending was treated with a Balloon, Drug Eluting Stent, and Balloon. Recommendations * 1-Return to inpatient for close monitoring and routine cath care 2-Risk factor modification for secondary prevention 3-Statin and aspirin 81 mg life-long, if tolerated 4-Patient was pre-loaded with 300 mg of Plavix, continue Plavix 75mg p.o. daily for at least one year. We will assess at the end of one year again to continue if further or not 5-Continue optimal medical management 6-Follow up with Dr. Cai in four weeks and your primary care in 10 days. Diagnostic RX Recommendation: PCI w/o planned CABG Pressures Phase:Rest AO : 117 / 79 ( 97 ) @ 11:36:00 AM 120 / 89 ( 103 ) @ 11:41:00 AM 125 / 99 ( 112 ) @ 11:47:00 AM 99 / 82 ( 61 ) @ 11:57:00 AM 133 / 114 ( 124 ) @ 12:03:00 PM Clinical Evaluation EBL: 5mL-10mL Procedural Details Procedure Consent Obtained. Pre-Procedure Time Out. Identified patient by full name and date of as verbalized by the patient/guarantor. Does the consent match the physician's order: Yes. Accurate & Complete Informed Consent: Yes. Inpatient/Outpatient History & Physical on Chart: Yes. If H&P is completed, is and addenduem needed: No; If yes, is the addendum complete: N/A. Visualize and Verify Site with Patient/Guarantor: N/A. Relevant Radiology Images available: Yes. Pre-op teaching completed and patient verbalized understanding. The risks, benefits, and alternatives of sedation and/or procedure were discussed by physician. The patient agrees to continue. Procedure started. Physician arrived. [facility] Clinical Fraility Score: 4: Vulnerable. Fructose Loader Indications: LV Dysfunction. Chest Pain Symptom Assessment: Typical Angina Symptoms. Correct patient, site and procedure confirmed by cath team. Current diagnosis: Chest Pain. PERRLA. Strong, equal hand recreation therapy aide bilaterally. Lungs clear x 5 lobes. IV Site on Arrival: 20 gauge in the left anticubital. IV Fluids: 0.9% NaCl at KVO. 0 mL infused prior to school laboratory technician. Pre Procedural Pulses: bilateral dorsalis pedis was 3+. Pre Procedural Pulses: bilateral posterior tibial was 2+. Pre Procedural Pulses: bilateral radial was 3+. Oxygen started at 2liters/min via nasal canula. right groin was prepped with chloroprep then draped in the usual sterile fashion. right radial was prepped with chloroprep then draped in the usual sterile fashion. Baseline sample Acquired. HR: 63 BPM. Current Diagnosis : Chest Pain. Physician scrubbed in. Immediate Pre-Procedure Time Out. Correct Patient: Yes; Correct Procedure: Yes; Correct Site: Yes; Correct Patient Position: Yes; Correct Supplies: Yes; Dried Flammable Prep: Yes; Blood Products Available: N/A;. Lidocaine 1% infiltrated to the right radial. Arterial access obtained. A 5 canadian Sharan catheter in over wire. Multiple views taken of left coronary artery. Catheter removed over the exchange wire. A 5 canadian JR4 catheter in over wire. Multiple views taken of right coronary artery. Catheter removed over the exchange wire. 6 canadian XB 3.5 guide catheter was inserted over the wire. ACT drawn. Results 273 seconds. Therapeutic limits - pre-heparin administration 90-150 seconds and monitoring heparin during a vascular procedure >250 seconds. Runthrough guidewire was advanced through the guide catheter to lesion in the distal LAD. Wire out. Runthrough guidewire was advanced through the guide catheter to lesion in the distal LAD. Inflation number : 1 A AB TREK 2.50X12 RX BALLOON was prepped and advanced across the Dist LAD , then inflated to 12 NICHOLE for 0:14 seconds. Inflation number: 2 The AB TREK 2.50X12 RX BALLOON was reinflated across the Dist LAD, to 12 NICHOLE for 0:10 seconds. Inflation number: 3 The AB TREK 2.50X12 RX BALLOON was reinflated across the Dist LAD, to 12 NICHOLE for 0:10 seconds. Balloon out. Inflation Number : 4 A MDT R STEPHANIE 3.0X18 KAROL -Lot Number# _[id number] EXP: 03/17/2027 was prepped and advanced across the Dist LAD. The stent was deployed at 12 NICHOLE for 0:12 seconds. Stent balloon out over wire. Results checked. Inflation number : 5 A MDT NC EUPHORA RX [id number] BALLOON was prepped and advanced across the Dist LAD , then inflated to 12 NICHOLE for 0:13 seconds. Inflation number: 6 The MDT NC EUPHORA RX [id number] BALLOON was reinflated across the Dist LAD, to 12 NICHOLE for 0:17 seconds. Inflation number: 7 The MDT NC EUPHORA RX [id number] BALLOON was reinflated across the Dist LAD, to 12 NICHOLE for 0:13 seconds. Balloon out. Results checked. Wire out. Guide catheter out. A TR Band was successful obtaining hemostatsis at the Right Radial artery insertion site. Post Procedure: Pulses reassessed and unchanged. PERRLA. Strong, equal hand recreation therapy aide bilaterally. No VTE prophylaxis required. Medication's Wasted: Lidocaine 1% = 18 mL. Medication's Wasted: Nitro = 49.8 mcg. Medication's Wasted: Heparin = 4000 units. Medication's Wasted: Other = Versed 1 mg. Total IV fluids: 50 mL. Post-op diagnosis: Stent to LAD. Complications: None. Estimated blood loss: 5mL-10mL. Responsiveness - Normal response to verbal stimuli; alert and oriented, PERRLA. Airway - Unaffected, no intervention required; spontaneous ventilation. Circulation: W/N/L, pulses unchanged. Nausea/Vomiting: No. Procedure completed. Patient transferred by wheelchair to 1st floor. Vital chart was stopped. Access Site Site: Right Radial artery Sheath Size: 6 Fr Hemostasis Method: TR Band Hemostasis Success: Successful Procedure Medications Start: 10:22 AM Stop: 10:22 AM Medication: Versed Amount: 1 mg Route: I.V. Start: 10:22 AM Stop: 10:22 AM Medication: Fentanyl Amount: 50 mcg Route: I.V. Start: 10:31 AM Stop: 10:31 AM Medication: Versed Amount: 1 mg Route: I.V. Start: 10:31 AM Stop: 10:31 AM Medication: Fentanyl Amount: 25 mcg Route: I.V. Start: 10:32 AM Stop: 10:32 AM Medication: Nitrogylcerin Amount: 200 mcg Route: I.A. Start: 10:35 AM Stop: 10:35 AM Medication: Heparin Amount: 5000 units Route: I.V. Start: 10:52 AM Stop: 10:52 AM Medication: Heparin Amount: 3000 units Route: I.V. Start: 10:57 AM Stop: 10:57 AM Medication: Versed 1 mg and Fentanyl 25 mcg Amount: 1 Route: I.V. Start: 11:09 AM Stop: 11:09 AM Medication: Plavix Amount: 300 mg Route: P.O. I, the attending physician, have reviewed and verified all procedure medications. Yes, all medications given per verbal order History/Risk Factors Hypertension: No Dyslipidemia: Yes Peripheral Arterial Disease (PAD): No Myocardial Infarction (VA): No Obesity: Yes Renal Disease: No Tobacco Use: Current/Recent(w/in 1 year) Prior Interventions PCI: No CABG: No Valve Surgery: No Report Signatures Finalized by Saranya Cai MD on 09/27/2024 11:48 PM
[2024-09-27] MEDS: diphenhydrAMINE 50 mg Capsule PO (09:30)
[2024-09-27] MEDS: aspirin 325 mg Tablet PO (09:30)
--- NOTE | 2024-09-27 10:25 | W.PM.OPSUD ---
Surgery/Procedure H&P Update DATE OF PROCEDURE: September 27, 2024 DATE H&P PERFORMED: 09/14/24 H&P UPDATE INFORMATION: I have reviewed H&P completed within last 30 days, I have examined patient prior to procedure and No changes to prior documentation PREOP DIAGNOSIS: New onset of heart failure PRIMARY INDICATION FOR PROCEDURE: New onset of LV dysfunction PLANNED PROCEDURE: Operation Date: 09/27/24 10:00 Proposed Procedures p Cardiac Catheterization - [facility] w/wo LV & Coros(Left) - Saranya Cai MD PATIENT REASSESSED PRIOR TO SEDATION, WITH NO CHANGE NOTED: Yes PHYSICAL EXAM: alert, oriented x 3, clear to auscultation bilaterally, regular rate & rhythm and operative site marked OTHER PERTINENT EXAM FINDINGS: Patient has been explained all risk-benefit and alternative for the procedure. Patient understand 2% risk of stroke major bleed, patient understand 5% risk of infection hematoma pseudoaneurysm contrast induced nephropathy urgent or emergent vascular or cardiac surgery. Patient agrees to it and would like to proceed with it. AIRWAY EVAL/ANESTHESIA PLAN: ASA II, Risks, benefits & alternatives of sedation and/or procedure discussed and Patient agrees to continue as planned
--- NOTE | 2024-09-27 11:20 | PM.PROC ---
Procedure Note: Date of procedure: 09/27/24 Pre-procedure diagnosis: New onset of heart failure/LV dysfunction Procedure: Left heart catheter performed Left main: Is normal LAD has mid to distal significant 80% stenosis it appeared to be culprit vessel Left circumflex has no significant stenosis RCA has no significant stenosis PDA has distal high-grade stenosis but it is small caliber and very distal segment not amenable to intervention and not the culprit vessel thought to be treated medically PCI to distal LAD with drug-eluting stent postdilated with noncompliant balloon. Excellent angiographic result with MAEDLINE-3 flow was noted at end of case without any complication. Patient was reloaded with 300 mg of Plavix, given 325 mg of aspirin in the Tearoom Host/Hostess. Continue home medications including atorvastatin lisinopril Moderate sliding scale insulin for blood sugar control Radial band as per protocol Possible discharge tomorrow Continue IV fluid 100 mL/h for next 5 hours Full note to be dictated Coding Level of Care Code Acute Code for Samantha Grimaldo
--- NOTE | 2024-09-27 16:30 | PC.NURSE ---
TR band removed per protocol. Patient educated regarding activity restrictions and safety.
[2024-09-27] MEDS: HYDROcodone-acetaminophen 5-325 mg Tablet 1 TAB PO (18:35)
[2024-09-27] MEDS: atorvastatin 40 mg Tablet PO (22:02)
[2024-09-27] MEDS: sodium chloride 0.9% 1,000 ML 100 ML IV (22:02)
[2024-09-28 00:11] VITALS: BP 119/77; PULSE 73; RESP 20; O2SAT 95
[2024-09-28 03:40] LABS: Basophils # 0.1 10^3/uL (0.0-0.1); Eosinophils # 0.4 10^3/uL (0.0-0.8); Eosinophils % 5.4 %; Hematocrit 44.9 % (37-53); Lymphocytes # 1.4 10^3/uL (0.8-4.8); Lymphocytes % 20.2 %; Mean Corpuscular HGB Conc 32.5 g/dL (30-55); Mean Corpuscular Hemoglobin 26.6 pg (27-33); Mean Corpuscular Volume 81.8 fl (82-101); Mean Platelet Volume 9.8 fL (7.4-10.4); Monocytes # 0.9 10^3/uL (0.2-0.9); Monocytes % 13.2 %; Neutrophils # 4.06 10^3/uL (1.8-7.7); Neutrophils % 59.6 %; Nucleated Red Blood Cells % 0 %; Platelet Count 249 10^3/cmm (157-399); Red Blood Count 5.49 10^6/uL (3.85-5.65); Red Cell Distribution Width 15.8 % (12.1-15.1); White Blood Count 6.82 10^3/uL (3.29-11.43)
[2024-09-28 04:04] LABS: Blood Urea Nitrogen 21 mg/dL (6-20); Calcium 8.6 mg/dL (8.5-10.5); Carbon Dioxide 22 mmol/L (22-29); Chloride 108 mmol/L (98-107); Creatinine Clr Calc Pharmacy 128.8157; Glomerular Filtration Rate 88.6 mL/min (90-130); Glucose 108 mg/dL (65-115); Osmolality Calculated 292 mOsm/kg (285-295); Sodium 139 mmol/L (136-145)
[2024-09-28 07:12] VITALS: BP 103/68
[2024-09-28] MEDS: aspirin 81 mg EC Tablet PO (07:52)
[2024-09-28] MEDS: lisinopril 10 mg Tablet PO (07:52)
[2024-09-28] MEDS: clopidogrel 75 mg Tablet PO (07:52)
[2024-09-28] MEDS: HYDROcodone-acetaminophen 5-325 mg Tablet 1 TAB PO (07:52)
[2024-09-28 08:00] VITALS: BP 129/91; PULSE 74; RESP 20; TEMP 36.5; O2SAT 97
--- NOTE | 2024-09-28 10:35 | PM.DCS ---
Discharge Providers Date of Admission: 09/27/2024 Date of Discharge: September 28, 2024 Attending Provider at Admission: Dr. Cai Attending Provider at Discharge: Saranya Cai MD Diagnoses at Discharge Discharge Diagnosis (1) Congestive heart failure: Status: Acute Qualifiers: Heart failure type: diastolic Heart failure chronicity: acute on chronic Qualified Code(s): I50.33 - Acute on chronic diastolic (congestive) heart failure (2) Cerebrovascular accident (CVA): Status: Acute Qualifiers: CVA mechanism: unspecified Qualified Code(s): I63.9 - Cerebral infarction, unspecified (3) Coronary artery disease: Status: Acute Qualifiers: Coronary Disease-Associated Artery/Lesion type: creek artery [place] vs. transplanted heart: creek heart Associated angina: without angina Qualified Code(s): I25.10 - Atherosclerotic heart disease of creek coronary artery without angina pectoris Reason for Visit Reason for Visit: I5.09 Brief History: The patient is a 54-year-old with history of cerebrovascular accident. In July 2024, the patient experienced a cerebrovascular event, approximately three to four weeks after being diagnosed with congestive heart failure at [place]. The patient experienced symptoms such as right-side numbness and was treated with blood thinners after seeking emergency care for stroke-like symptoms. It was determined that there was moderate stenosis in the right vertebral artery and mild stenosis in the bilateral intracranial carotid arteries. Before the stroke, the patient had developed signs of congestive heart failure, such as shortness of breath and fluid retention, which improved following the administration of diuretics like Lasix. An echocardiogram performed later revealed slightly impaired cardiac function, including a low normal ejection fraction of 51%, mild hypokinesis, and grade 3 diastolic dysfunction, with increased left atrial size. The patient denies previously having atrial fibrillation, but intermittent episodes were considered following the stroke incident. Monitoring results showed a consistent sinus rhythm without atrial arrhythmias. Due to the new onset CHF, coronary angiogram was performed. Hospital Course Hospital Course Patient underwent coronary angiogram. 1. There is significant coronary artery disease with two vessel disease. 2. Distal Left Anterior Descending was treated with a Balloon, Drug Eluting Stent, and Balloon. He tolerated procedure well without complications and had a normal post cath course. Physical Exam Narrative: General: No apparent distress, healthy appearing, well nourished HENMT: normoceophalic Muskuloskeletal: Full ROM Respiratory: Normal respiratory effort, clear to auscultation bilaterally throughout all lung mitchell, no use of accessory muscles Cardio: No JVD, regular rate, regular rhythm, S1 S2 normal, no murmurs, peripheral pulses 2+ radial palpated bilaterally Extremities: Full ROM, normal, normal capillary refill, no cyanosis or edema Neuro: Alert and oriented x4, no focal motor deficits Psych: Affect normal, denies suicidal ideation, mental status grossly normal Skin: right radial cath site clean, dry, intact w/o s/s of hematoma Discharge Data Studies Completed and Pending Completed Studies During Hospitalization Category Date Time Status 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 Routine Exams 09/27/24 09:06 Completed Laboratory Results WBC 6.82 10^3/uL (3.29-11.43) 09/28/24 02:53 RBC 5.49 10^6/uL (3.85-5.65) 09/28/24 02:53 Hgb 14.60 g/dL (11.27-16.99) 09/28/24 02:53 Hct 44.9 % (37-53) 09/28/24 02:53 MCV 81.8 fl (82-101) L 09/28/24 02:53 MCH 26.6 pg (27-33) L 09/28/24 02:53 MCHC 32.5 g/dL (30-55) 09/28/24 02:53 RDW 15.8 % (12.1-15.1) H 09/28/24 02:53 Plt Count 249 10^3/cmm (157-399) 09/28/24 02:53 MPV 9.8 fL (7.4-10.4) 09/28/24 02:53 Neut % (Auto) 59.6 % 09/28/24 02:53 Lymph % (Auto) 20.2 % 09/28/24 02:53 [place] % (Auto) 13.2 % 09/28/24 02:53 Eos % (Auto) 5.4 % 09/28/24 02:53 Baso % (Auto) 1.0 % 09/28/24 02:53 Neut # (Auto) 4.06 10^3/uL (1.8-7.7) 09/28/24 02:53 Lymph # (Auto) 1.4 10^3/uL (0.8-4.8) 09/28/24 02:53 [place] # (Auto) 0.9 10^3/uL (0.2-0.9) 09/28/24 02:53 Eos # (Auto) 0.4 10^3/uL (0.0-0.8) 09/28/24 02:53 Baso # (Auto) 0.1 10^3/uL (0.0-0.1) 09/28/24 02:53 Nucleated RBC % (auto) 0 % 09/28/24 02:53 Nucleated RBCs # 0.0 /100WBC 09/28/24 02:53 Sodium 139 mmol/L (136-145) 09/28/24 02:53 Potassium 4.0 mmol/L (3.5-5.1) 09/28/24 02:53 Chloride 108 mmol/L (98-107) H 09/28/24 02:53 Carbon Dioxide 22 mmol/L (22-29) 09/28/24 02:53 Anion Gap 13.0 (5-19) 09/28/24 02:53 BUN 21 mg/dL (6-20) H 09/28/24 02:53 Creatinine 0.9 mg/dL (0.7-1.2) 09/28/24 02:53 GFR Calculation 88.6 mL/min (90-130) L 09/28/24 02:53 Glucose 108 mg/dL (65-115) 09/28/24 02:53 Calculated Osmolality 292 mOsm/kg (285-295) 09/28/24 02:53 Calcium 8.6 mg/dL (8.5-10.5) 09/28/24 02:53 Procedures Performed Diagnostic Cath Status: Elective Diagnostic Findings * Left Main has no disease. * Circumflex has no disease. * Distal Left Anterior Descending: significant 80% stenosis, MADELINE: 3 flow. * Right Posterior AV: obstructive 70% stenosis, MADELINE: 3 flow. * Coronary angiography shows right dominance. PCI Status: Elective PCI Indication: New Onset Angina <= 2 months Interventional Findings * Distal Left Anterior Descendin% stenosis treated with a AB TREK 2.50X12 RX BALLOON, IVORY Wise STEPHANIE 3.0X18 KAROL, and T DALIA EUPHORA RX [id number] BALLOON. 0% residual stenosis, MADELINE: 3 flow. Conclusions 1. There is significant coronary artery disease with two vessel disease. 2. Distal Left Anterior Descending was treated with a Balloon, Drug Eluting Stent, and Balloon. Vitals Last Vital Signs Temp 97.7 F 09/28/24 08:00 Pulse 74 09/28/24 08:00 Resp 20 H 09/28/24 08:00 BP 129/91 09/28/24 08:00 Pulse Ox 97 09/28/24 08:00 O2 Del Method Room Air 09/28/24 08:00 Discharge Plan Discharge Patient Disposition: Home Prescriptions: New clopidogrel 75 mg Tablet 75 mg PO DAILY Qty: 90 3RF aspirin 81 mg Tablet,Delayed Release (Dr/Ec) 81 mg PO DAILY Qty: 90 3RF Continued dapagliflozin propanediol [Farxiga] 10 mg tablet 10 mg PO DAILY Qty: 90 3RF atorvastatin [Lipitor] 40 mg tablet 40 mg PO DAILY Qty: 90 3RF ondansetron 8 mg tablet,disintegrating 8 mg PO PRN PRN (Reason: Nausea) lisinopril 10 mg tablet 10 mg PO DAILY Discontinued clopidogrel [Plavix] 75 mg tablet 75 mg PO DAILY Qty: 90 3RF aspirin 81 mg capsule 81 mg PO DAILY Qty: 30 0RF Rx Instructions: start taking from 08/18/24 Discharge Orders: Discharge Order (Routine); Ordered 09/28/24 Ordered By: Kristin Kelley Referrals: Gina Richardson FNP [Nurse Practitioner, Cardiology] - 10/06/24 4:00 pm Dale Thompson MD [Physician, Family Practice] - 10/06/24 8:00 am Patient Instructions: Coronary Angioplasty (DC), Post Angiogram Home Care Instructions Activity Restrictions/Additional Instructions: Discussed with patient no heavy lifting more than a gallon of milk for 3 days. No driving for 3 days. Monitor for and report signs or symptoms of bleeding. Monitor for and report s/s of infection such as fever 101 or greater, swelling, redness or pain to the wrist. 1-Return to inpatient for close monitoring and routine cath care 2-Risk factor modification for secondary prevention 3-Statin and aspirin 81 mg life-long, if tolerated 4-Patient was pre-loaded with 300 mg of Plavix, continue Plavix 75mg p.o. daily for at least one year. We will assess at the end of one year again to continue if further or not 5-Continue optimal medical management 6-Follow up with Dr. Cai in four weeks and your primary care in 10 days. Print Language: Belarusian Discharge Attestations Time Spent in Discharge Care*: less than 30 min Quality Metrics Clinical Quality Measures [ No reported AMI, CVA or VTE this stay] Coding Level of Care Code Acute Code for Chg Fwd Diagnoses Acute on chronic diastolic congestive heart failure I50.33 Heart failure type: diastolic Heart failure chronicity: acute on chronic Cerebrovascular accident (CVA), unspecified mechanism I63.9 CVA mechanism: unspecified Coronary artery disease involving creek coronary artery of creek heart without angina pectoris I25.10 Coronary Disease-Associated Artery/Lesion type: creek artery [place] vs. transplanted heart: creek heart Associated angina: without angina
--- NOTE | 2024-09-28 10:39 | PC.CHAP ---
Pastoral Care Encounter/Spiritual Assessment Type of Contact [] Declined chemist visit [] Patient/Family/Request visit [] Outpatient visit [] Follow-up visit [] Physician referral [] Code/Alert [x] Routine visit [] Staff referral [] Actively dying [] Patient sleeping [x] Family support [] [] Out of room [] Palliative care [] [] Receiving care in room [] Pre-surgical visit [] Trauma [] Long length of stay [] ICU visit [] Other: Relational/Emotional Strength [x] Patient feels connected with others/family/visitors/staff [] Distress [] Loneliness/isolation [] Abandonment Spirituality of Patient [x] Person of Jackie [] Attends Faith of their Jackie [x] Believes in Prayer [] Reads Bible or Spiritism materials [] There are Spiritual issues to be addressed Charcoal Unloader Interventions [x] Prayer [x] Active listening [x] Non-anxious presence [x] Spiritual/emotional support [] Crisis/trauma care [] Spiritual counseling [] Bereavement support [] Provided bereavement packet [] Provided Bible/devotional materials [] Provided toy/stuffed animal, coloring book to patient or family member [] Provided Communion [] Anointing/Eastsound [] Salvation [x] Completed spiritual assessment [] Other: Impact on Illness or Injury [] Angry [] Fearful [] Anxious [] Often cries [] Exhaustion [] Unable to work [] Unable to attend spiritism [] Unable to walk/stand [] Unable to read [] Unable to drive [] Unable to eat/drink [] Unable to sleep [] Unable to be with family [] Patient intubated [] Other: Summary Time spent with patient 5 min
== END 2024-09-28 10:59 | disposition home or self-care (01) ==
LOC: CCL 08:53 → CSU 09-28 07:42
PROVIDERS: Visit Provider Internal Medicine Cardiovascular Disease
DX: I25.10 Atherosclerotic heart disease of native coronary artery without angina pectoris (principal); E78.5 Hyperlipidemia, unspecified; E66.9 Obesity, unspecified; Z68.41 Body mass index [BMI] 40.0-44.9, adult; I50.33 Acute on chronic diastolic (congestive) heart failure; Z79.82 Long term (current) use of aspirin; Z82.49 Family history of ischemic heart disease and other diseases of the circulatory system; F17.220 Nicotine dependence, chewing tobacco, uncomplicated; Z86.73 Personal history of transient ischemic attack (TIA), and cerebral infarction without residual deficits
CPT/HCPCS: 36415; 80048; 85025; 85347; 92921; 93454; 99152; 99153; C1725; C1769; C1874; C1887; C1894; C9600; J1644; J2250; J3010; J3490; J7030; J9999; Q0163; Q9967

== ENCOUNTER → 2024-10-06 15:52 | Outpatient (BNVA) | payer MEDICARE, SELFPAY | PROVIDERS: Visit Provider Nurse Practitioner Family | DX: I11.0 Hypertensive heart disease with heart failure (principal); I50.33 Acute on chronic diastolic (congestive) heart failure; I25.10 Atherosclerotic heart disease of native coronary artery without angina pectoris; Z09 Encounter for follow-up examination after completed treatment for conditions other than malignant neoplasm; R73.03 Prediabetes; Z79.02 Long term (current) use of antithrombotics/antiplatelets; Z79.82 Long term (current) use of aspirin | CPT/HCPCS: 99214 ==

== ENCOUNTER → 2024-10-07 07:57 | Outpatient (BNVA) | payer MEDICARE, SELFPAY | PROVIDERS: PCP Family Medicine; Referring Provider Specialist; Visit Provider Specialist | DX: R22.32 Localized swelling, mass and lump, left upper limb (principal); R29.898 Other symptoms and signs involving the musculoskeletal system; R20.0 Anesthesia of skin | CPT/HCPCS: 95911 ==

== ENCOUNTER 2024-10-26 07:08 | Outpatient (CLI) | payer MEDICARE, SELFPAY ==
--- NOTE | 2024-10-26 07:00 | USCV_ITS ---
Maico Osorio Age: 54 Gender: M : 1970 Exam Date: 10/26/2024 07:29 Ordering Phys: Saranya Cai MD ([email or web address]) Technologist: [place] [facility] [place]: cva BP: 120 / 75 HR: Rhythm: Sinus Technical Quality: Adequate MEASUREMENTS (Male / Female) Normal Values 2D ECHO LV Ejection Fraction MOD 4C 52.2 % M-MODE LA Ao Ratio MM 1.8 AV Cusp Separation MM 2.0 cm FINDINGS Left Ventricle Normal left ventricular size, systolic function and wall thickness, with no regional wall motion abnormalities. Left ventricular ejection fraction is estimated at 60 %. Right Ventricle Right Atrium Left Atrium Mitral Valve Aortic Valve Tricuspid Valve Pulmonic Valve Pericardium Aorta IVC CONCLUSIONS Limited echo Normal left ventricular size, systolic function and wall thickness, with no regional wall motion abnormalities. Left ventricular ejection fraction is estimated at 60 %. No intracardiac shunt noted with bubble study. Bubble study is negative Saranya Cai MD (Electronically Signed) Final Date: 05 November 2024 17:48 S
== END 2024-10-26 07:09 | disposition home or self-care (01) ==
LOC: RAD 07:09
PROVIDERS: PCP Family Medicine; Visit Provider Internal Medicine Cardiovascular Disease
DX: I63.9 Cerebral infarction, unspecified (principal)
CPT/HCPCS: C8924

== ENCOUNTER → 2025-03-23 12:22 | Outpatient (BNVA) | payer MEDICARE, SELFPAY | PROVIDERS: PCP Family Medicine; Visit Provider Internal Medicine Cardiovascular Disease | DX: I25.10 Atherosclerotic heart disease of native coronary artery without angina pectoris (principal); Z78.9 Other specified health status; I11.0 Hypertensive heart disease with heart failure; I50.30 Unspecified diastolic (congestive) heart failure; Z95.5 Presence of coronary angioplasty implant and graft | CPT/HCPCS: 99214 ==